=== PATIENT | male | born 1960 | race Caucasian/White ===

== ENCOUNTER → 2018-09-11 12:41 | Outpatient (CLI) | payer OTHER, SELFPAY ==
--- NOTE | 2018-09-11 12:48 | XR_ITS ---
XR hip LT 2-3V w/pelvis HISTORY: ITS.REASON: left hip pain ORDERING PHYSICIAN: Gee Salguero MD PATIENT AGE: 58 years COMPARISON: None FINDINGS: There are moderate osteoarthritic change of the left hip with decrease in the joint space mild osteophyte formation and osteosclerosis of the acetabular roof. No fracture or dislocation. There is some sclerosis of the SI joints on both sides and there is a right hip prosthesis present. IMPRESSION: Moderate osteoarthritis of left hip
== END ==
PROVIDERS: PCP Internal Medicine Adolescent Medicine; Visit Provider Orthopaedic Surgery
DX: M25.552 Pain in left hip (principal)
CPT/HCPCS: 73502

== ENCOUNTER → 2018-09-12 14:54 | Outpatient (CLI) | payer OTHER, SELFPAY ==
--- NOTE | 2018-09-12 15:06 | XR_ITS ---
XR knee RT 4V HISTORY: Knee pain ITS.REASON: 4 views weightbearing ORDERING PHYSICIAN: Gee Salguero MD PATIENT AGE: 58 years COMPARISON: 04/27/2010 FINDINGS: Severe osteoarthritic changes are present at the lateral compartment and patellofemoral joint with moderate osteoarthritis at the medial compartment. These findings have progressed compared to the previous exam. No fracture or dislocation. There is mild valgus angulation of the leg at the knee. IMPRESSION: Severe osteoarthritis of the right knee which has progressed since the previous exam
== END ==
PROVIDERS: PCP Internal Medicine Adolescent Medicine; Visit Provider Orthopaedic Surgery
DX: M25.561 Pain in right knee (principal)
CPT/HCPCS: 73564

== ENCOUNTER → 2018-10-23 11:28 | Outpatient (CLI) | payer OTHER, SELFPAY ==
[2018-10-23 12:04] LABS: Basophils % 0.5 % (0.1-2.0); Eosinophils # 0.3 K/mm3 (0.0-0.4); Eosinophils % 4.6 % (0.1-12.0); Hematocrit 44.2 % (42.0-52.0); Hemoglobin 14.5 g/dL (14.1-18.0); Lymphocytes # 1.7 K/mm3 (0.7-4.5); Lymphocytes % 28.8 % (10-50); Mean Corpuscular HGB Conc 32.9 g/dL (31.8-35.4); Mean Corpuscular Hemoglobin 30.1 pg (27.0-31.2); Mean Corpuscular Volume 91.4 fl (80-94); Monocytes # 0.4 K/mm3 (0.1-1.0); Monocytes % 6.4 % (1.7-9.3); Neutrophils # 3.4 K/mm3 (1.8-7.8); Neutrophils % 59.7 % (37.0-80.0); Platelet Count 347 K/mm3 (142-424); Red Blood Count 4.84 M/mm3 (4.60-6.20); Red Cell Distribution Width 14.1 % (11.5-17.5); White Blood Count 5.7 K/mm3 (4.8-10.8)
[2018-10-23 12:12] LABS: Activated Partial Thrombo Time 30.4 seconds (23.6-34.0); INR 0.93 (0.9-1.1); Prothrombin Time 9.7 seconds (9.4-11.8)
[2018-10-23 15:07] LABS: Alanine Aminotransferase 29 U/L (12-78); Albumin Level 3.7 gm/dL (3.4-5.0); Albumin/Globulin Ratio 1.2 (1.1-1.8); Alkaline Phosphatase 69 U/L (46-116); Anion Gap 16.4 mEq/L (5-15); Aspartate Amino Transferase 18 U/L (15-37); Bilirubin,Total 0.4 mg/dL (0.2-1.0); Blood Urea Nitrogen 16 mg/dL (7-18); Calcium 8.8 mg/dL (8.5-10.1); Carbon Dioxide 24 mmol/L (21.0-32.0); Chloride 107 mmol/L (98-107); Creatinine,Serum 0.83 mg/dL (0.70-1.30); Estimated Glomerular Filt Rate 95 ml/min (>60); GFR (African American) 115 ML/MIN (>60); Globulin 3.2 gm/dl (1.3-3.2); Glucose 104 mg/dL (74-106); Potassium 4.4 mmoL/L (3.5-5.1); Sodium 143 mmol/L (136-145); Total Protein,Serum 6.9 gm/dL (6.4-8.2)
[2018-10-24 10:48] LABS: Chol/HDL Ratio 5.1 (1-3.5); Cholesterol 213 mg/dL (140-200); HDL Cholesterol 42 mg/dL (27-67); LDL Cholesterol 150 mg/dL (0-130); Triglycerides 104 mg/dL (30-200); VLDL Cholesterol 21 mg/dL (0-40)
== END ==
PROVIDERS: Visit Provider Nurse Practitioner Family
DX: Z01.818 Encounter for other preprocedural examination (principal); Z00.00 Encounter for general adult medical examination without abnormal findings; E78.2 Mixed hyperlipidemia; M16.12 Unilateral primary osteoarthritis, left hip
CPT/HCPCS: 36415; 80053; 80061; 85025; 85610; 85730

== ENCOUNTER → 2018-11-07 16:18 | Outpatient (CLI) | payer OTHER, SELFPAY ==
--- NOTE | 2018-11-07 16:24 | XR_ITS ---
XR chest 2V HISTORY: ITS.REASON: H/O TOBACCO USE ORDERING PHYSICIAN: Gee Salguero MD PATIENT AGE: 58 years COMPARISON: 09/16/2010 FINDINGS: The cardiomediastinal silhouette and pulmonary vascularity are within normal limits. The lungs are clear without infiltrates, suspicious nodules, or pleural effusions. No acute bony abnormalities. IMPRESSION: Negative chest, no acute finding
[2018-11-07 16:37] LABS: Microscopic, Urine URINE MICROSCOPIC (MICROSCOPIC)
[2018-11-07 16:46] LABS: Appearance,Urine CLEAR (Clear); Bilirubin,Urine Negative (Negative); Blood, Urine Negative (Negative); Color,Urine YELLOW (Yellow); Glucose,Urine (UA) Negative (Negative); Ketones,Urine Negative (Negative); Leukocyte Esterase,Urine TRACE (Negative); Nitrate,Urine Negative (Negative); Protein,Urine Negative (Negative); Specific Gravity, Urine 1.025 (1.005-1.030); Urobilinogen,Urine 0.2 EU/dl (0.2)
[2018-11-07 17:05] LABS: Bacteria,Urine Trace /lpf; RBC,Urine Occasional #/hpf (0-3); WBC,Urine Occasional #/hpf (0-3)
== END ==
PROVIDERS: PCP Internal Medicine Adolescent Medicine; Visit Provider Orthopaedic Surgery
DX: Z01.818 Encounter for other preprocedural examination (principal); M16.12 Unilateral primary osteoarthritis, left hip
CPT/HCPCS: 71046; 81001

== ENCOUNTER → 2018-11-09 09:58 | Outpatient (CLI) | payer OTHER, SELFPAY | PROVIDERS: Visit Provider Orthopaedic Surgery | DX: Z01.818 Encounter for other preprocedural examination (principal) | CPT/HCPCS: 36415; 86850 ==

== ENCOUNTER 2018-11-11 06:02 | Inpatient (IN) ==
--- NOTE | 2018-11-11 07:01 | Progress Note ---
[facility] Anesthesia Checklist - Patient Identification Patient Identification: Arm Band, Verbal (Name & ) - Structural Data Admitted From: Home Planned Operative Procedure/s: Left total hip arthroplasty Consent for Planned Operative Procedure(s) Verified: Yes Verified Documents: Surgical Consent, History and Physical - NPO Status Verified Time NPO: 00:00 - Chart Verification Results Verified: CBC, BMP, ECG - Additional verifications Anesthesia Reactions: No - Airway Assessment C-Spine Mobility Assessed: Yes TMJ Mobility Assessed: Yes Dentition: Good Dentition (upper anterior cap) - Neurological Assessment Level of Consciousness: Awake, Alert, Appropriate, Follows Commands Hx Seizures: No Numbness or tingling in extremities: No - Anesthesia Plan Anesthesia Risk discussed: Yes Anesthesia Plan: Verified ASA Class: III Anesthesia Type: Spinal (SAB with GA) [facility] History I have reviewed the patient's past medical history: Yes Medical History: Denies:: Cancer, Diabetes Mellitus Type 1, Diabetes Mellitus Type 2, Internal Pacemaker, MRSA, Seizures *Have you ever received a pneumonia vaccine?: No *Have you received a flu vaccine this season?: No Other Medical History: Reports: Arthritis. Denies: Blood Transfusion Reaction Comment:: obesity Laterality Cases: Right: Arthroscopy Knee, Total Hip Replacement Other Surgeries: No: Pacemaker Amputation: No Fractures: No - *Social History Smoking Status: Current every day smoker # Packs/Day (cigarettes): 1 Alcohol Intake: current Alcohol Intake Frequency:: holidays/special occasions only *Occupational Status:: employed Housing: house *Travel in the last 8 weeks: None - Psychiatric History Expresses thoughts of harming self/others: None Suicide Plan Description: No Plan Family Hx:: No significant family history
--- NOTE | 2018-11-11 12:45 | Progress Note ---
[facility] Anesthesia Record Part I Intake, IV Amount: 3,500 Estimated blood loss (mL): 1,000 Urine output (mL): 300 Blood Pressure: 94/56 SaO2: 96 Pulse Rate: 62 Respiratory Rate: 12 Temperature: 97 F Patient is:: Drowsy, Stable Stable to PACU at:: 12:40
--- NOTE | 2018-11-11 12:46 | Progress Note ---
[facility] Anesthesia Record Part II Discharge Time: 13:10 Destination: floor PACU nurse assessment reviewed?: Yes Patient Condition:: Good Anesthesia Complications:: None Swallowing reflex intact?: Yes Cyanosis?: No
--- NOTE | 2018-11-11 13:17 | Operative Note ---
Date of procedure: 11/11/18 Pre-op Diagnosis:: Osteoarthritis, left hip Post-op Diagnosis:: Same Procedure performed:: Uncemented total hip arthroplasty, left hip Surgeon:: Gee Salguero MD Vice President Business Development(s):: Gina Pickard, certified social workers in health care SPLUNK ARCHITECT:: [place]ear[place] Anesthesia: spinal, LMA Estimated blood loss (mL): 1,000 Clinical Note:: Patient is a 58-year-old male who has end-stage osteoarthritis of his LEFT hip unresponsive to conservative management. The arthritis is causing severe pain and significant disability and has not responded well to conservative management. His pain has significantly worsened recently and he rates his pain a 10 out of 10 at its worse on the pain scale. He states walking, sitting, getting up from a seated position, weightbearing and going up or down stairs aggravates his pain. His mobility is impaired because of the hip pain. He also reports sleep disturbance and night pain. The pain also is adversely affecting his lifestyle, activities of daily living and his work. He also has advanced degenerative changes in his right knee which is also stiff. The pain and stiffness in his left hip and right knee puts him at risk of falls likely resulting in fractures. His imaging shows fairly advanced degenerative changes in his left hip. Given the progressive hip pain, limitation of activities and adverse effect on ADLs and work he is keen to proceed with a left total hip arthroplasty. A total hip arthroplasty is clinically indicated and is the standard of care to relieve pain and the help prevent the disability and risk of falls. He previously had a successful right total hip arthroplasty about 8 years ago. Patient is aware of the procedure, risks, complications, the postop rehabilitation and the outcome after having gone through a similar procedure on the right side previously. 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 He has no significant medical history. Please refer to my office note for full details. Operative findings:: Intraoperatively, end-stage osteoarthritis of the hip joint was noted. The femoral head was grossly arthritic and misshapen and osteophytes were noted on both the acetabulum and the femoral head. The capsule was thickened and hip joint was stiff with limited range of motion. The bone quality is good. Operative note:: On the day of the procedure the patient/family were met in the preoperative area and the patient was positively identified. A physical examination was performed and documented. The operative site was appropriately marked and initialed by me. I again reviewed the diagnosis, natural history and management options in detail including both nonsurgical and surgical. We discussed the proposed surgery, risks and benefits and alternatives in detail. The complications discussed include but are not limited to infection, injury to nerves, blood vessels and tendons, DVT and PE, fracture, limb length inequality, dislocation, implant malpositioning, implant failure, squeaking, loosening, acetabular wear, osteolysis, periprosthetic femur fracture, heterotopic ossification, abductor weakness and limp, incomplete relief of pain, likely need for further surgery in future including revision, anesthetic complications including heart attack, stroke and even . We also discussed the postoperative recovery and rehabilitation. Patient understood the risks, agreed to proceed with surgery, signed the consent form and no guarantees or assurances were given or implied. The patient was brought to the operating room and a spinal anesthesia followed by LMA was administered by the freight coordinator. The patient was then positioned in the RIGHT lateral decubitus position with the LEFT hip facing up. We used Browsarityon hip positioner for this. All the bony prominences were appropriately padded. The LEFT hip was then prepped with isopropyl alcohol followed by chlorhexidine and draped in the usual sterile fashion. The entire operative team wore isolation suits and the Operating Room traffic was controlled. The skin incision was marked for a posterior approach to the hip joint. The perineum and the operative site were sealed off with Ioban drape. A preprocedure timeout was performed as per hospital protocol identifying the patient, correct surgery and correct site. Administration of 2 g of prophylactic IV Ancef was confirmed with the anesthetic team. Before completion of the procedure 1 more gram of IV Ancef was administered as the operating time exceeded 2 hours. We have also administered 1g of IV tranexamic acid just before the incision and one more gram at the time of wound closure, to reduce the postoperative bleeding. A posterior approach was used to the LEFT hip joint. The skin incision was made centering over the posterior part of the greater trochanter extending posteriorly in a curved fashion across the buttock. An electrocautery was used for hemostasis. The dissection was carried through the subcutaneous tissue down to the fascia rachael. The fascia rachael and gluteus fascia were split in line with the incision and a Charnley retractor was placed. The trochanteric bursa was then removed with blunt dissection. The sciatic nerve was identified and kept out of harm's way throughout the rest of the procedure. The hip joint was internally rotated and the fat over the short external rotators was cleared with a sponge. The short external rotator muscles were identified, multiple tag stitches were placed near their insertion and they were divided close to the trochanter with electrocautery. This exposed the joint capsule which was opened in a T-shaped incision after tag stitches were placed to both the leaves of the capsule. There was marked inflammation and adhesions which made it joint dislocation somewhat difficult. Also there was more than usual bleeding from the capsule and external rotators which was controlled with diathermy cautery. Eventually the hip joint was dislocated with some difficulty on significant degenerative changes noted on both sides of the joint. Then the femoral neck was osteotomized with an oscillating saw. The femoral cutting guide was used to demarcate the appropriate level of the neck cut. The femoral head was removed, noted to be very deformed with osteophyte formation over the neck and saved on the back table for later use if needed. We then placed anterior and posterior Cobra retractors and proceeded to prepare the acetabulum. We also placed a thick Steinmann pin superiorly to help with soft tissue retraction. The soft tissue contents of the acetabulum including the ligamentum teres and the labrum were removed. We then proceeded to reaming the acetabulum. We started off with a size 50 reamer and then proceeded with reaming up to size 56 for a size 56 acetabular shell. Following appropriate reaming, we placed a size 56 definitive cluster hole acetabular shell at approximately 45 degrees inclination and 20 degrees of anteversion. The press-fit fixation was quite solid. We then placed the metal liner into the shell and impacted into place. We then placed a Ray-Demarco gauze in the acetabulum and proceeded to prepare the proximal femur. After removing the soft tissue from the medial aspect of the greater trochanter, a box osteotome was used to remove the bone from the proximal femur. A canal entry reamer was then used to open the femoral canal paying close attention to keep the reamer in a lateral position. Next we used the lateralizing drill. Next we performed femoral broaching starting with a small broach, making sure to lateralize the placement and maintain 15-20 degrees of femoral anteversion. The broaching was continued sequentially up to size 4 broach. We found this to be a very good fit without any rocking. We then finished the preparation of the proximal femur with a calcar reamer. We then performed a trial reduction using a size 4 broach, 132 angle neck and 0 mm head. The hip was reduced and taken through range of motion and tested in adduction, internal and external rotation as well as with a shuck and posteriorly directed force on a flexed hip. We placed the hip at 90 degrees of flexion and then we could internally rotate to over 45 degrees with no evidence of instability. Also in the sleep position of approximately 20 degrees of adduction and internal rotation of 45 degrees the hip was still stable. We also noted that the limb lengths were equal with these components. As the hip was noted to be very stable with these trial components throughout the range of motion, we decided on this as our final construct. Next the trial components were removed and the femoral canal was irrigated with the pulse lavage and suctioned out. There was an anterior osteophyte over the acetabulum which was removed with osteotome and rongeurs. The definitive femoral stem was then placed and seated to the appropriate level. This gave us a very good fit without any play whatsoever. We then irrigated and dried the Irving taper and then placed the definitive MDM femoral head assembly on the stem and tapped into place. The Ray-Demarco was removed from the acetabulum and hip joint irrigated with the pulse lavage. The hip was then reduced and taken through range of motion and noted to be very stable. The limb length was also well corrected. The hip joint was then soaked with dilute Betadine (0.35 percent) solution for 3 minutes followed by suctioning of the solution and pulsatile lavage with the 1 L of normal saline. At this point, I also injected the capsule and soft tissue with the local anesthetic cocktail (0.5 percent bupivacaine 200 mg +10 mg of morphine +600 g of epinephrine +750 mg of cefuroxime +30 mg of ketorolac diluted in normal saline to make up a total volume of 120 mL). The hip joint was again thoroughly irrigated with the pulse lavage and good hemostasis was confirmed. At this stage I have decided to place antibiotic beads in the wound to reduce the risk of infection as patient is obese and the surgical time was approaching 3 hours. The antibiotic beads were prepared on the back table by the certified technician by mixing 10 cc of OsteoBoost Putty (OsteoRemedies) with 2 g of vancomycin and 120 mg of gentamicin. We placed these beads around the prosthesis and also in the soft tissues both deep and superficial to the fascia rachael. We then proceeded with with wound closure. The capsule was closed with #1 Vicryl sutures followed by the reattachment of the external rotators to the greater trochanter with #1 Vicryl sutures. Next the fascia rachael and gluteus fascia were closed with #1 Vicryl sutures. The wound was then finally irrigated with pulse lavage and suctioned dry. Next the subcutaneous tissue was closed wi th interrupted 2-0 Vicryl sutures. The skin was closed with subcuticular 4-0 Monocryl sutures, Dermabond and Steri-Strips. Sterile dressings were applied consisting of Xeroform, 4 x 4 and [address] secured in place with adhesive tape. No drains were placed. The patient was then transferred from the operating table onto the bed. The leg lengths were again checked in supine position and noted to be equal. An abduction foam was placed between the legs. The patient was then reversed from the anesthetic and transported to the postoperative recovery area in a stable condition. Patient tolerated the procedure well and there were no immediate complications. The swab, needle and instrument counts were correct according to the scrub team at the end of the procedure. Portable x-rays of the pelvis AP view and lateral view of the LEFT hip were obtained in the recovery area which showed satisfactory placement of the components and no evident complications. Postoperatively, institute and continue standard precautions for a posterior hip approach. Patient can be mobilized weightbearing as tolerated with the help of physical therapy and commence standard physical therapy for a posterior approach on the first postoperative day. Implants: The following [employer] implants were used- Guilherme Accolade 2 press-fit femoral stem, 132 degree neck angle, size 4 Trident titanium cluster hole acetabular shell, 56 mm 46 mm inner diameter MDM cementless liner Taoism MDM X3 insert 28/, size 46F Biolox delta ceramic head V 40 femoral head, size 28 mm x +0 mm neck length Industry software sales representative: Kendall Johann from [employer]. Condition: stable Disposition: PACU Specimens:: None Complications:: None
[2018-11-11 13:19] LABS: Hematocrit 33.9 % (42.0-52.0)
--- NOTE | 2018-11-11 14:17 | Pharmacy Consult Notes ---
[facility] Pharmacy VTE Monitoring - Patient Demographics Admission date: 11/11/18 Report Date: 11/11/18 Time: 14:17 Allergies/Adverse Reactions: Patient Allergies No Known Allergies Allergy (Verified 11/08/18 10:57) Height: 1.88 m Weight: 129.812 kg - VTE Risk Labs: VTE Related Lab Results Hgb 11.0 g/dL (14.1-18.0) L 11/11/18 13:10 Hct 33.9 % (42.0-52.0) L 11/11/18 13:10 - Prophylaxis VTE Prophylaxis Ordered?: Yes Types of VTE Prophylaxis: IPCS Thigh High, Pharmacological Location of Applied Device: Bilateral Lower Extremeties Pharmacologic Type: Other (XARELTO) - VTE Diagnosis Confirmed Treatment or plan recommended: Continue Current Treatment
--- NOTE | 2018-11-11 15:04 | Progress Note ---
Subjective Date: 11/11/18 Time: 14:30 Principal diagnosis: Status post total hip arthroplasty, left Interval history: Patient is status post LEFT total hip arthroplasty earlier today. The surgery was difficult and he did not lose about thousand mL of blood during surgery. Now he is back on the floor and patient is lying down on the bed. He says he is having a lot of pain in his left hip. No history of any nausea or vomiting. No history of any cough, chest pain, shortness of breath or palpitations. No history of any distal tingling or numbness. PN: Obj Ex Vital signs: Temp Pulse Resp BP Pulse Ox 97 F L 60 20 118/80 95 11/11/18 12:45 11/11/18 13:20 11/11/18 13:20 11/11/18 13:20 11/11/18 13:20 Narrative: Laboratory Results - last 24 hr 11/11/18 07:45: Urine Color Yellow, Urine Appearance Clear, Urine pH 6.0, Ur Specific [place] 1.025, Urine Protein Negative, Urine Glucose (UA) Negative, Urine Ketones Negative, Urine Blood Negative, Urine Nitrate Negative, Urine Bilirubin Negative, Urine Urobilinogen 0.2, Ur Leukocyte Esterase Negative, Urine RBC None, Urine WBC None, Ur Squamous Epith Cells Occasional, Urine Bacteria Trace 11/11/18 13:10: Hgb 11.0 L, Hct 33.9 L Exam General appearance: alert, active, awake, no acute distress Cardiovascular: regular rate & rhythm, normal peripheral pulses Respiratory: No respiratory distress noted, speaks in full sentences ABD: soft and non tender Neuro: alert, awake, oriented x 3 Genitourinary: Catheter in situ. On examination of the lower extremities he has an abduction wedge in place. On examination of the LEFT hip the dressings are clean, dry and intact. Distal pulses are 2+. Distal sensation is intact to light touch throughout. He is able to actively move the ankle, foot and toes. Diagnostic imaging: Postoperative x-ray reviewed and noted to be satisfactory. - Urinary Catheter Management Coude Cath placed during this visit: yes Urethral indwelling: Yes Reason for continuing: Surgical procedure Insertion date: 11/11/18 Insertion time: 07:45 Progress Note: A&P (1) Primary osteoarthritis of left hip Status: Acute Current Visit: Yes (2) S/P total hip arthroplasty Status: Acute Current Visit: Yes Assessment and Plan for All Diagnoses:: I have reviewed the clinical and operative findings and procedure performed with the patient and family. He is complaining of left hip pain but otherwise patient is doing well. Patient can be mobilized weightbearing as tolerated on the LEFT side with a walker and on the first postoperative day. Continue DVT prophylaxis. Continue abduction pillow when in bed and continue standard precautions for the posterior approach hip replacement. As his pain is not well controlled with as needed medication, I have ordered morphine [employer]. Discontinue the urinary catheter on first postoperative day. Case management consult regarding discharge planning. Postoperative H&H .9.
--- NOTE | 2018-11-11 18:10 | Consult Report ---
*Admission Date: 11/11/18 *Reason for consult:: Medical management/postoperative left hip replacement *History of present illness: 58-year-old white male with medical problems as listed below who underwent succ essful total left hip arthroplasty earlier today. Consulted for medical management postoperatively. Patient is awake, in good spirits. Denies cardiopulmonary or GI complaints. Pain relief is adequate at this point. [facility] History I have reviewed the patient's past medical history: Yes Medical History: Denies:: Cancer, Diabetes Mellitus Type 1, Diabetes Mellitus Type 2, Internal Pacemaker, MRSA, Seizures *Have you ever received a pneumonia vaccine?: No *Have you received a flu vaccine this season?: No Other Medical History: Reports: Arthritis. Denies: Blood Transfusion Reaction Laterality Cases: Right: Arthroscopy Knee, Total Hip Replacement Other Surgeries: No: Pacemaker Amputation: No Fractures: No - *Social History Educational Level: Completed College Smoking Status: Current every day smoker Tobacco Type: cigarettes # Packs/Day (cigarettes): 1 Alcohol Intake: current Alcohol Intake Frequency:: holidays/special occasions only *Occupational Status:: employed Housing: house Household Members: family *Travel in the last 8 weeks: None - Psychiatric History Expresses thoughts of harming self/others: None Suicide Plan Description: No Plan Family Hx:: No significant family history, Non-contributory Review of Systems - Review of Systems Review of systems:: pertinent systems reviewed and negative unless documented below Denies shortness of air/chest pain/palpitations. Denies abdominal pain. Continues to have some pain in the left hip/incisional site but no significant pain down the leg. Neurologically intact, no headache pain Meds Home Medications Medication Instructions Recorded Confirmed Type Bacitracin/Polymyxin B Sulfate 0 gm TOPICAL DAILY 11/11/18 11/11/18 History [Polysporin Oint 30gm Tube] Allergies Allergy/AdvReac Type Severity Reaction Status Date / Time No Known Allergies Allergy Verified 11/08/18 10:57 Exam Vital signs and Labs for Last 24 Hours: Temp Pulse Resp BP Pulse Ox 97.5 F L 56 L 18 114/57 L 99 11/11/18 16:30 11/11/18 16:30 11/11/18 16:30 11/11/18 16:30 11/11/18 16:30 Laboratory Results - last 24 hr 11/11/18 07:45: Urine Color Yellow, Urine Appearance Clear, Urine pH 6.0, Ur Specific [place] 1.025, Urine Protein Negative, Urine Glucose (UA) Negative, Urine Ketones Negative, Urine Blood Negative, Urine Nitrate Negative, Urine Bilirubin Negative, Urine Urobilinogen 0.2, Ur Leukocyte Esterase Negative, Urine RBC None, Urine WBC None, Ur Squamous Epith Cells Occasional, Urine Bacteria Trace 11/11/18 13:10: Hgb 11.0 L, Hct 33.9 L I & O for Last 24 hours: Intake & Output 11/09/18 11/10/18 11/11/18 11/12/18 11:59 11:59 11:59 11:59 Intake Total 3840 / 3840 Output Total 650 / 650 Balance 3190 / 3190 Weight 280 lb 286 lb 3 oz Narrative: Alert, pleasant, cranial nerves intact. Oropharynx clear. No JVD. Heart rate regular without murmurs. Lungs clear. Abdomen soft and nontender. No edema in hands, normal pulses. Right leg unremarkable. Left leg in postoperative bandages, distal toes intact, warm and well-perfused Internal Medicine - CN: Reslt - Labs CBC & Chem 7: 11/11/18 13:10 Labs: Short CBC 11/11/18 Range/Units 13:10 Hgb 11.0 L (14.1-18.0) g/dL Hct 33.9 L (42.0-52.0) % Urine 11/11/18 Range/Units 07:45 Urine Color Yellow (Yellow) Urine Appearance Clear (Clear) Urine pH 6.0 (5.0-8.5) Ur Specific [place] 1.025 (1.005-1.030) Urine Protein Negative (Negative) Urine Glucose (UA) Negative (Negative) Assessment and Plan (1) Primary osteoarthritis of left hip Current visit: Yes Status: Acute Category: Medical Code(s): M16.12 - Unilateral primary osteoarthritis, left hip (2) S/P total hip arthroplasty Current visit: Yes Status: Acute Category: Surgical Code(s): Z96.649 - Presence of unspecified artificial hip joint - Assessment and plan all Dx Assessment and Plan for all problems:: Appears to have done well with operative intervention. No contraindication to physical therapy tomorrow. Will follow with orthopedics.
[2018-11-12 06:03] LABS: Basophils % 0.3 % (0.1-2.0); Eosinophils # 0.1 K/mm3 (0.0-0.4); Eosinophils % 1.2 % (0.1-12.0); Lymphocytes # 1.5 K/mm3 (0.7-4.5); Lymphocytes % 17.7 % (10-50); Mean Corpuscular HGB Conc 32.3 g/dL (31.8-35.4); Mean Corpuscular Volume 91.7 fl (80-94); Mean Platelet Volume 7.1 fl (7.4-10.4); Monocytes # 0.6 K/mm3 (0.1-1.0); Monocytes % 7.4 % (1.7-9.3); Neutrophils # 6.2 K/mm3 (1.8-7.8); Neutrophils % 73.5 % (37.0-80.0); Platelet Count 269 K/mm3 (142-424); Red Blood Count 3.71 M/mm3 (4.60-6.20); Red Cell Distribution Width 14.3 % (11.5-17.5); White Blood Count 8.5 K/mm3 (4.8-10.8)
[2018-11-12 06:09] LABS: Anion Gap 12.3 mEq/L (5-15)
--- NOTE | 2018-11-12 08:02 | Progress Note ---
Internal Medicine - PN: Subj *Date: 11/12/18 *Time: 08:00 Interval history: Patient got up with physical therapy this morning. Has no complaints. Tolerating p.o. intake. Otherwise doing well. Hemodynamic stable, normal blood pressure, afebrile. Denies nausea, vomiting. Pain well controlled on current regimen Exam Vital signs and Labs for Last 24 Hours: Temp Pulse Resp BP Pulse Ox 98.5 F 70 20 111/63 98 11/12/18 06:00 11/12/18 06:00 11/12/18 07:42 11/12/18 06:00 11/12/18 07:42 Laboratory Results - last 24 hr 11/11/18 07:45: Urine Color Yellow, Urine Appearance Clear, Urine pH 6.0, Ur Specific [place] 1.025, Urine Protein Negative, Urine Glucose (UA) Negative, Urine Ketones Negative, Urine Blood Negative, Urine Nitrate Negative, Urine Bilirubin Negative, Urine Urobilinogen 0.2, Ur Leukocyte Esterase Negative, Urine RBC None, Urine WBC None, Ur Squamous Epith Cells Occasional, Urine Bacteria Trace 11/11/18 13:10: Hgb 11.0 L, Hct 33.9 L 11/12/18 05:31: WBC 8.5, RBC 3.71 L, Hgb 11.0 L, Hct 34.0 L, MCV 91.7, MCH 29.6, MCHC 32.3, RDW 14.3, Plt Count 269, MPV 7.1 L, Neut % (Auto) 73.5, Lymph % (Auto) 17.7, [place] % (Auto) 7.4, Eos % (Auto) 1.2, Baso % (Auto) 0.3, Neut # (Auto) 6.2, Lymph # (Auto) 1.5, [place] # (Auto) 0.6, Eos # (Auto) 0.1, Baso # (Auto) 0.0 11/12/18 05:31: Sodium 140, Potassium 4.3, Chloride 104, Carbon Dioxide 28, Anion Gap 12.3, BUN 8, Creatinine 1.03, Estimated Creat Clear 143, Estimated GFR 74, Est GFR ( Amer) 90, Glucose 112 H, Calcium 8.0 L I & O for Last 24 hours: Intake & Output 11/09/18 11/10/18 11/11/18 11/12/18 23:59 23:59 23:59 23:59 Intake Total 4206 / 4206 Output Total 650 / 650 1800 / 1800 Balance 3556 / 3556 -1800 / -1800 Weight 129.812 kg 129.727 kg Narrative: Alert, pleasant, cranial nerves intact. Oropharynx clear. No JVD. Heart rate regular without murmurs. Lungs clear. Abdomen soft and nontender. No edema in hands, normal pulses. Right leg unremarkable. Left leg in postoperative bandages, distal toes intact, warm and well-perfused Assessment and Plan (1) Primary osteoarthritis of left hip Current visit: Yes Status: Acute Category: Medical Code(s): M16.12 - Unilateral primary osteoarthritis, left hip (2) S/P total hip arthroplasty Current visit: Yes Status: Acute Category: Surgical Code(s): Z96.649 - Presence of unspecified artificial hip joint (3) Class II obesity Current visit: Yes Status: Acute Category: Medical Code(s): E66.9 - Obesity, unspecified Complicates all aspects of care - Assessment and plan all Dx Assessment and Plan for all problems:: Blood pressure stable. No need for antihypertensives at this time. Continue Xarelto for DVT prophylaxis. Recommend discontinuing Velazquez catheter to decrease risk for infection and promote ambulation. Continue physical therapy.
--- NOTE | 2018-11-12 13:26 | Progress Note ---
Subjective Date: 11/12/18 Time: 13:00 Principal diagnosis: Status post total hip arthroplasty, left Interval history: Patient is status post LEFT total hip arthroplasty post op day #1. Patient is lying down on the bed. Says he is doing well and reports no problems. Patient says he went to the bathroom few minutes ago and had an acute episode of severe left hip pain but otherwise the pain is well controlled with medication. No history of any nausea or vomiting. No history of any cough, chest pain, shortness of breath or palpitations. Patient says he is eating and drinking well. No history of any distal tingling or numbness. PN: Obj Ex Vital signs: Temp Pulse Resp BP Pulse Ox 98.9 F 72 16 105/67 L 98 11/12/18 11:40 11/12/18 11:40 11/12/18 11:40 11/12/18 11:40 11/12/18 11:40 Narrative: Laboratory Results - last 24 hr 11/11/18 13:10: Hgb 11.0 L, Hct 33.9 L 11/12/18 05:31: WBC 8.5, RBC 3.71 L, Hgb 11.0 L, Hct 34.0 L, MCV 91.7, MCH 29.6, MCHC 32.3, RDW 14.3, Plt Count 269, MPV 7.1 L, Neut % (Auto) 73.5, Lymph % (A uto) 17.7, [place] % (Auto) 7.4, Eos % (Auto) 1.2, Baso % (Auto) 0.3, Neut # (Auto) 6.2, Lymph # (Auto) 1.5, [place] # (Auto) 0.6, Eos # (Auto) 0.1, Baso # (Auto) 0.0 11/12/18 05:31: Sodium 140, Potassium 4.3, Chloride 104, Carbon Dioxide 28, Anion Gap 12.3, BUN 8, Creatinine 1.03, Estimated Creat Clear 143, Estimated GFR 74, Est GFR ( Amer) 90, Glucose 112 H, Calcium 8.0 L Intake & Output 11/10/18 11/11/18 11/12/18 11/13/18 11:59 11:59 11:59 11:59 Intake Total 4446 / 4446 240 / 240 Output Total 3150 / 3150 Balance 1296 / 1296 240 / 240 Weight 280 lb 286 lb Exam General appearance: alert, active, awake, no acute distress Cardiovascular: regular rate & rhythm, normal peripheral pulses Respiratory: No respiratory distress noted, speaks in full sentences ABD: soft and non tender Neuro: alert, awake, oriented x 3 Psych: normal mood and affect On examination of the lower extremities the limb lengths are equal. Thigh and calf are soft and nontender. On examination of the LEFT hip the dressings are clean, dry and intact. Distal pulses are 2+. Distal sensation is intact to light touch throughout. No motor deficits noted distally. He demonstrates good range of active ankle, foot and toe movements. - Urinary Catheter Management Coude Cath placed during this visit: yes Urethral indwelling: Yes Reason for continuing: Surgical procedure Insertion date: 11/11/18 Insertion time: 07:45 Velazquez Cath placed during this visit: no Progress Note: A&P (1) Primary osteoarthritis of left hip Status: Acute Current Visit: Yes (2) S/P total hip arthroplasty Status: Acute Current Visit: Yes (3) Class II obesity Status: Acute Current Visit: Yes Assessment and Plan for All Diagnoses:: I have reviewed the clinical findings and progress with the patient and family. Patient overall is doing well and reports no problems. He is mobilizing well weightbearing as tolerated on the LEFT side with the walker and to continue the same. Continue DVT prophylaxis. Continue abduction pillow when in bed and continue standard precautions for the posterior approach hip replacement. Discontinue IV fluids, SCRAP BALLER. Urinary catheter has been discontinued earlier today. Case management is looking into discharge planning. Continue medical management as per Dr. Davies.
[2018-11-13 06:27] LABS: Basophils % 0.3 % (0.1-2.0); Eosinophils # 0.1 K/mm3 (0.0-0.4); Hematocrit 31.7 % (42.0-52.0); Hemoglobin 10.4 g/dL (14.1-18.0); Lymphocytes # 1.5 K/mm3 (0.7-4.5); Lymphocytes % 13.8 % (10-50); Mean Corpuscular HGB Conc 32.9 g/dL (31.8-35.4); Mean Corpuscular Volume 93.2 fl (80-94); Mean Platelet Volume 7.6 fl (7.4-10.4); Monocytes # 0.9 K/mm3 (0.1-1.0); Monocytes % 8.4 % (1.7-9.3); Neutrophils # 8.2 K/mm3 (1.8-7.8); Neutrophils % 76.6 % (37.0-80.0); Platelet Count 259 K/mm3 (142-424); Red Blood Count 3.41 M/mm3 (4.60-6.20); Red Cell Distribution Width 14.2 % (11.5-17.5); White Blood Count 10.7 K/mm3 (4.8-10.8)
[2018-11-13 06:33] LABS: Anion Gap 11.8 mEq/L (5-15); Calcium 8.1 mg/dL (8.5-10.1)
--- NOTE | 2018-11-13 14:21 | Progress Note ---
Subjective Date: 11/13/18 Time: 13:00 Principal diagnosis: Status post total hip arthroplasty, left Interval history: Patient is status post LEFT total hip arthroplasty post op day #2. Patient is lying down on the bed. He still complaining of significant pain and says it is not well controlled with as needed hydrocodone/Tylenol. He says he is mobilizing well with physical therapy using a walker. S no history of any nausea or vomiting. No history of any cough, chest pain, shortness of breath or palpitations. Patient says he is eating and drinking well. No history of any distal tingling or numbness. PN: Obj Ex Vital signs: Temp Pulse Resp BP Pulse Ox 98.4 F 75 18 130/75 98 11/13/18 11:05 11/13/18 11:05 11/13/18 11:05 11/13/18 11:05 11/13/18 11:05 Narrative: Laboratory Results - last 24 hr 11/13/18 05:36: Sodium 139, Potassium 3.8, Chloride 103, Carbon Dioxide 28, Anion Gap 11.8, BUN 13 D, Creatinine 1.07, Estimated Creat Clear 137, Estimated GFR 71, Est GFR ( Amer) 86, Glucose 130 H, Calcium 8.1 L 11/13/18 05:56: WBC 10.7 D, RBC 3.41 L, Hgb 10.4 L, Hct 31.7 L, MCV 93.2, MCH 30.6, MCHC 32.9, RDW 14.2, Plt Count 259, MPV 7.6, Neut % (Auto) 76.6, Lymph % (Auto) 13.8, [place] % (Auto) 8.4, Eos % (Auto) 1.0, Baso % (Auto) 0.3, Neut # (Auto) 8.2 H, Lymph # (Auto) 1.5, [place] # (Auto) 0.9, Eos # (Auto) 0.1, Baso # (Auto) 0.0 Exam General appearance: alert, active, awake, no acute distress Cardiovascular: regular rate & rhythm, normal peripheral pulses Respiratory: No respiratory distress noted, speaks in full sentences ABD: soft and non tender Neuro: alert, awake, oriented x 3 On examination of the lower extremities the limb lengths are equal. Thigh and calf are soft and nontender. On examination of the LEFT hip the dressings are clean, dry and intact. The dressings are changed by me. There is no soakage of the dressings. The wound looks clean and healthy. No evidence of any infection or other complications is noted. Distal pulses are 2+. Distal sensation is intact to light touch throughout. No motor deficits noted distally. - Urinary Catheter Management Coude Cath placed during this visit: yes Urethral indwelling: Yes Reason for continuing: Surgical procedure Insertion date: 11/11/18 Insertion time: 07:45 Velazquez Cath placed during this visit: no Progress Note: A&P (1) Primary osteoarthritis of left hip Status: Acute Current Visit: Yes (2) S/P total hip arthroplasty Status: Acute Current Visit: Yes (3) Class II obesity Status: Acute Current Visit: Yes Assessment and Plan for All Diagnoses:: I have reviewed the clinical findings and progress with the patient. Overall he is doing well but his pain appears to be poorly controlled with oral hydrocodone/Tylenol. Therefore, I have changed his pain medication and ordered PRN oxycodone. Patient is mobilizing well weightbearing as tolerated on the LEFT side with the walker and to continue the same. Continue DVT prophylaxis. Continue abduction pillow when in bed and continue standard precautions for the posterior approach hip replacement. Case management looking into discharge planning. I understand that his insurance provider declined to approve his to stay [facility] for rehab. Continue medical management as per Dr. Davies.
--- NOTE | 2018-11-14 08:15 | Progress Note ---
Internal Medicine - PN: Subj *Date: 11/14/18 *Time: 08:11 Interval history: Patient had a good night overnight, but this morning has developed some significant left thigh pain on the lateral aspect of the thigh and reports that the left side of the thigh appears hard. Denies shortness of air, denies chest pain. Exam Vital signs and Labs for Last 24 Hours: Temp Pulse Resp BP Pulse Ox 99.3 F 78 18 141/78 H 95 11/14/18 07:35 11/14/18 07:35 11/14/18 07:40 11/14/18 07:35 11/14/18 07:35 I & O for Last 24 hours: Intake & Output 11/11/18 11/12/18 11/13/18 11/14/18 11:59 11:59 11:59 11:59 Intake Total 4446 / 4446 960 / 960 1080 / 1080 Output Total 3150 / 3150 850 / 850 Balance 1296 / 1296 960 / 960 230 / 230 Weight 280 lb 286 lb 284 lb 9 oz 283 lb 6 oz Narrative: Patient is awake, alert. No tachypnea or tachycardia noted. His left leg is extremely tender along the lateral aspect of the quad muscle and there is a's suggestion of tightness to the muscle but there is no cord formation or bruising evident. There is a small blister at the proximal aspect of the thigh just below the dressing from his hip incision surgery, but no actual skin breakdown. There is no calf swelling or cord formation in the calf. He is able to flex the knee but only minimally because of pain in the quad muscle area with flexion. Assessment and Plan (1) Primary osteoarthritis of left hip Current visit: Yes Status: Acute Category: Medical Code(s): M16.12 - Unilateral primary osteoarthritis, left hip (2) S/P total hip arthroplasty Current visit: Yes Status: Acute Category: Surgical Code(s): Z96.649 - Presence of unspecified artificial hip joint (3) Class II obesity Current visit: Yes Status: Acute Category: Medical Code(s): E66.9 - Obesity, unspecified - Assessment and plan all Dx Assessment and Plan for all problems:: Left leg pain --very atypical for DVT but in the context of postoperative status I have ordered Dopplers. Warm compresses have also been ordered. I wonder if this represents some type of muscle spasm from the PT/possible incision location. His neurovascular exam seems intact at this point. Close observation continues.
--- NOTE | 2018-11-14 09:07 | Non-Invasive Vascular Report ---
"Venous Exam Indications: 729.81 Swelling of limb. 729.5 Pain in limb. IMPRESSIONS No evidence of deep or superficial vein thrombosis involving the left lower extremity History: Risk factors: Recent surgery: HIP 11/11/18. Left lower extremity venous duplex evaluation. Doppler flow study including spectral analysis, color and ocampo scale imaging. Location: Bedside. Patient status: Inpatient. CRITICAL FINDINGS - Reported to: RN - Read back and verified. - 11/14/18 - 899 - NONE Tables: Venous flow and imaging: + +-------+ + |Location |Overall|Flow properties | + +-------+ + |Left common femoral |Patent |Normal phasicity; spontaneous; | | | |normal augmentation; compressible | + +-------+ + |Left saphenofemoral junction|Patent |Compressible | + +-------+ + |Left profunda femoral |Patent |Compressible | + +-------+ + |Left femoral |Patent |Normal phasicity; spontaneous; | | | |normal augmentation; compressible | + +-------+ + |Left greater saphenous |Patent |Normal phasicity; spontaneous; | | | |normal augmentation; compressible | + +-------+ + |Left popliteal |Patent |Normal phasicity; spontaneous; | | | |normal augmentation; compressible | + +-------+ + |Left posterior tibial |Patent |Compressible | + +-------+ + |Left peroneal |-------| | + +-------+ + |Left gastrocnemius |Patent |Compressible | + +-------+ + |Left soleal |Patent |Compressible | + +-------+ + (Report amended ) Electronically signed by: Rusty Nice [id number]"
[2018-11-14 14:47] VITALS: BP 151/72
--- NOTE | 2018-11-14 15:59 | Discharge Summary ---
General - General Admission date:: 11/11/18 Discharge date: 11/14/18 HPI HPI: Patient is a 58-year-old male who has end-stage osteoarthritis of his LEFT hip unresponsive to conservative management. He was admitted to hospital following an uncomplicated primary left total hip arthroplasty on 11/11/2018. He is giving a history of progressively worsening left hip pain. His x-rays showed severe left hip arthritis. He previously had a successful right total hip arthroplasty about 8 years ago. Has had left hip pain for the length of time and his symptoms have progressed rapidly over the last for 6 months or so. He localizes the pain to anterior, posterior and lateral aspect of his left hip with radiation into the upper thigh. He is having difficulty with work and activities of daily living because of his left hip arthritis. He reports night pain and occasional sleep disturbance as well as difficulty with activities of daily living including caring for his feet, dressing and undressing and putting socks and shoes on. He also reports significant stiffness in his left hip. He also reports that his pain is worse in cold weather and also aggravated with walking, weightbearing and climbing stairs. No history of any distal tingling or numbness. No history of any radicular symptoms. The arthritis is causing severe pain and significant disability and has not responded well to conservative management. The pain also is affecting his lifestyle, activities of daily living and significantly impacting his work. He is also at risk of falls from his arthritis. A total hip arthroplasty is indicated to relieve pain and the help prevent the disability and risk of falls. Hospital Course Hospital Course: Following uncomplicated primary total hip arthroplasty patient was admitted to the inpatient [facility] and has progressed well. His postoperative check x-ray was satisfactory with good alignment and fixation of the components. He was advised to ambulate weightbearing as tolerated on the LEFT side. Patient managed this very well using the walker. He is pain was difficult to control initially but was well controlled after switching to oral oxycodone. On the day of discharge patient complained of some anterior thigh pain and Dr. Davies ordered a Doppler scan to rule out DVT. This was noted to be negative for DVT. His surgical incision is clean and dry without any active discharge or signs of infection. His distal neurovascular status is intact. Patient is eating and drinking well without any problems. Patient is medically stable at the time of discharge and was medically cleared for discharge by Dr. Besson. The dressings were changed on the second postoperative day and the wound is healthy and healing well. No signs of any erythema, induration or discharge. Patient was started on Xarelto 10 mg daily for DVT prophylaxis after surgery. His neurovascular status in both lower extremities is intact. Pedal pulses 2+ bilaterally and fully sensate distally. No clinical evidence of DVT noted. Patient was cleared for discharge by physical therapy. On the day of discharge, the wound is clean and dry. The patient's vital signs have been stable throughout and he is afebrile at the time of discharge. He is being discharged home, self-care and he has elected to attend an outpatient facility for postoperative rehab. Condition at discharge: improved and stable. Treatments and Procedures: Total hip arthroplasty, left hip; date of surgery 11/11/2018 Objective Vital signs: Temp Pulse Resp BP Pulse Ox 100.6 F H 85 18 151/72 H 97 11/14/18 14:46 11/14/18 14:46 11/14/18 14:46 11/14/18 14:46 11/14/18 14:46 no acute distress, obese - *Routine HEENT Exam Head: Present: normocephalic, atraumatic Eye: Present: EOMI ENT: Present: mucous membranes moist - *Routine Neck Exam Present: supple, full ROM - *Routine Respiratory Exam Present: CTA bilaterally. Absent: respiratory distress - *Routine Cardiovascular Exam Present: RRR, Normal S1, Normal S2 - *Routine Abdominal Exam Present: soft, normoactive bowel sounds. Absent: organomegaly - *Routine Extremities Exam Comments: On examination of the lower extremities the limb lengths are equal. Thigh and calf are soft and nontender. On examination of the LEFT hip the dressings are clean, dry and intact. The dressings were changed by me. There is no soakage of the dressings. The wound looks clean and healthy. No evidence of any infection or other complications noted. Distal pulses are 2+. Distal sensation is intact. He demonstrates good range of knee, foot and ankle movements. - Routine Back/Spine/Pelvis Exam Back/Spine: Present: full ROM. Absent: paraspinal tenderness, vertebral ten derness - *Routine Skin Exam Present: intact, warm, normal turgor - *Routine Neurological Exam Present: alert, oriented X3, moving all extremities, normal tone, normal speech - Routine Psychiatric Exam Present: normal affect, cooperative DS: Diagnosis - Discharge Diagnosis (1) Primary osteoarthritis of left hip Status: Acute (2) S/P total hip arthroplasty Status: Acute (3) Class II obesity Status: Acute Discharge Plan - Patient Discharge Instructions ACTIVITY: Ambulate as tolerated DIET: regular diet Patient Instructions: Hip Replacement, DI for Hip Replacement, Surgical Site Infection - Follow up Plan Disposition: Home, Self-Jail Medications: Home Medications Medication Instructions Recorded Confirmed Type RX: Atorvastatin Calcium 40 mg PO DAILY 11/12/18 11/12/18 History [Atorvastatin 40mg Tab] Oxycodone HCl/Acetaminophen 1 - 2 tab PO Q4H PRN #60 tab 11/14/18 Rx [Percocet 5/325mg tablet] RX: Docusate Sodium [Docusate 100 mg PO BID #14 cap 11/14/18 Rx Sodium 100mg Cap] RX: Ferrous Sulfate [Ferrous 325 mg PO BID #90 tab 11/14/18 Rx Sulfate 325mg Tablet] RX: Rivaroxaban [Xarelto 10mg 10 mg PO DAILY #35 tab 11/14/18 Rx tablet] Prescriptions/Medication Reconciliation: New Oxycodone HCl/Acetaminophen [Percocet 5/325mg tablet] 1 - 2 tab PO Q4H PRN #60 tab PRN Reason: Breakthru Severe Pain RX: Docusate Sodium [Docusate Sodium 100mg Cap] 100 mg PO BID #14 cap RX: Ferrous Sulfate [Ferrous Sulfate 325mg Tablet] 325 mg PO BID #90 tab RX: Rivaroxaban [Xarelto 10mg tablet] 10 mg PO DAILY #35 tab Continued RX: Atorvastatin Calcium [Atorvastatin 40mg Tab] 40 mg PO DAILY Discontinued Bacitracin/Polymyxin B Sulfate [Polysporin Oint 30gm Tube] 0 gm TOPICAL DAILY - Additional Information Additional Information: Our recommendations on discharge include physical therapy with weightbearing as tolerated and standard postoperative rehab for primary total hip replacement via posterior approach. Patient was also advised to keep the leg elevated and ice the hip on a regular basis. At this stage it is permissible to take a shower and allow the incision to get wet with shower water. After padding the area dry, the wound can be left open. Patient has absorbable sutures and Steri-Strips for wound closure. To continue mobilizing weightbearing as tolerated on the LEFT side with the walker and transition to a cane as he progresses. Standard physical therapy and postoperative precautions as for a posterior approach hip replacement. Keep the abduction wedge between the legs when patient is in bed and also during sleep for 6 weeks postop. Patient will follow up with me in the office in approximately 12-14 days for wound check and to cut the suture ends. Recommend 10 mg of Xarelto p.o. daily for 5 weeks for DVT prophylaxis. Please feel free to call our office at [phone] or via the hospital ribbing machine operator [phone] for any orthopedic questions or concerns.
== END 2018-11-14 18:10 | disposition home or self-care (01) | DRG 470 ==
LOC: OR 06:02 → 2ND 06:10
PROVIDERS: ADMIT Orthopaedic Surgery; ATTEND Orthopaedic Surgery
CPT/HCPCS: 36415; 73502; 80048; 81001; 85014; 85018; 85025; 93971; 96374; 97110; 97116; 97161; 97166; 97530; 97535; A4649; C1713; C1776; J0697; J2704; J3370

== ENCOUNTER → 2018-11-26 16:41 | Outpatient (CLI) | payer OTHER, SELFPAY ==
--- NOTE | 2018-11-26 16:49 | XR_ITS ---
XR hip LT 2-3V w/pelvis HISTORY: Follow-up hip replacement ITS.REASON: two weeks sp LT total hip ORDERING PHYSICIAN: Gee Salguero MD PATIENT AGE: 58 years COMPARISON: None FINDINGS: No change status post bipolar prosthesis placement of the left hip. There has been some resolution of the antibiotic beatings. There remains good alignment. Prior right hip arthroplasty noted as well. IMPRESSION: Good alignment status post left hip arthroplasty
[2018-11-26 17:23] LABS: Basophils # 0.1 K/mm3 (0-0.2); Basophils % 0.6 % (0.1-2.0); Eosinophils # 0.3 K/mm3 (0.0-0.4); Eosinophils % 3.3 % (0.1-12.0); Hematocrit 37.3 % (42.0-52.0); Hemoglobin 11.5 g/dL (14.1-18.0); Lymphocytes # 2.1 K/mm3 (0.7-4.5); Lymphocytes % 23.8 % (10-50); Mean Corpuscular HGB Conc 30.7 g/dL (31.8-35.4); Mean Corpuscular Volume 94.2 fl (80-94); Mean Platelet Volume 7.1 fl (7.4-10.4); Monocytes # 0.6 K/mm3 (0.1-1.0); Monocytes % 6.4 % (1.7-9.3); Neutrophils # 5.7 K/mm3 (1.8-7.8); Neutrophils % 65.8 % (37.0-80.0); Platelet Count 723 K/mm3 (142-424); Red Blood Count 3.96 M/mm3 (4.60-6.20); White Blood Count 8.6 K/mm3 (4.8-10.8)
[2018-11-26 17:40] LABS: C-Reactive Protein 2.8 mg/L (0.0-0.9)
[2018-11-26 18:08] LABS: Erythrocyte Sedimentation Rate 96 mm/hr (0-20)
== END ==
PROVIDERS: PCP Internal Medicine Adolescent Medicine; Visit Provider Orthopaedic Surgery
DX: Z96.649 Presence of unspecified artificial hip joint (principal)
CPT/HCPCS: 36415; 73502; 85025; 85651; 86140

== ENCOUNTER → 2018-12-11 09:10 | Outpatient (CLI) | payer OTHER, SELFPAY ==
[2018-12-11 09:29] LABS: Basophils % 0.6 % (0.1-2.0); Eosinophils # 0.3 K/mm3 (0.0-0.4); Eosinophils % 7.1 % (0.1-12.0); Hematocrit 35.9 % (42.0-52.0); Hemoglobin 11.2 g/dL (14.1-18.0); Lymphocytes # 1.7 K/mm3 (0.7-4.5); Lymphocytes % 40.5 % (10-50); Mean Corpuscular HGB Conc 31.2 g/dL (31.8-35.4); Mean Corpuscular Hemoglobin 27.5 pg (27.0-31.2); Mean Platelet Volume 6.5 fl (7.4-10.4); Monocytes # 0.3 K/mm3 (0.1-1.0); Neutrophils # 1.9 K/mm3 (1.8-7.8); Neutrophils % 44.8 % (37.0-80.0); Platelet Count 375 K/mm3 (142-424); Red Blood Count 4.08 M/mm3 (4.60-6.20); Red Cell Distribution Width 14.6 % (11.5-17.5); White Blood Count 4.3 K/mm3 (4.8-10.8)
[2018-12-11 10:01] LABS: Erythrocyte Sedimentation Rate 56 mm/hr (0-20)
[2018-12-11 10:37] LABS: C-Reactive Protein < 0.2 mg/L (0.0-0.9)
--- NOTE | 2018-12-11 12:51 | XR_ITS ---
XR hip LT 2-3V w/pelvis HISTORY: ITS.REASON: sp LEFT total hip arthroplasty ORDERING PHYSICIAN: Gee Salguero MD PATIENT AGE: 58 years COMPARISON: 11/26/2018. FINDINGS: The alignment and appearance of bilateral hip prostheses appear to be stable. There are stable pelvic calcifications suggesting phleboliths. There is subchondral sclerosis at both sacroiliac joints greater on the left side and appears unchanged. There is no acute fracture. Soft tissues are stable and unremarkable. Impression: Stable exam. Both hip prostheses are stable. Stable chronic sacroiliitis bilaterally.
--- NOTE | 2018-12-11 12:51 | US_ITS ---
US extremity LT limited HISTORY: ITS.REASON: evaluatefor fluid collection around LTHIP incision ORDERING PHYSICIAN: Gee Salguero MD PATIENT AGE: 58 years COMPARISON: None Ultrasound exam was performed over the area of clinical concern which occurs at the caudal lateral left hip area. Approximately 3.0 cm deep to the surgical scar there is a thick linear hypoechoic area measuring 3.6 x 2.0 cm. The margins are irregular. Along the superior aspect is a very thin hypoechoic extension almost to the skin surface for a total length of 5.5 cm. Impression: Under of the surgical scar is a superficial hypoechoic abnormality. This is very nonspecific and could be residual postoperative inflammatory tissue, phlegmon, chronic hematoma and focal abscess is not ruled out however apparently patient clinical and laboratory values have improved however if there is any change then repeat study with possible aspiration would be considered.
== END ==
PROVIDERS: PCP Internal Medicine Adolescent Medicine; Visit Provider Orthopaedic Surgery
DX: Z96.642 Presence of left artificial hip joint (principal)
CPT/HCPCS: 36415; 73502; 76882; 85025; 85651; 86140

== ENCOUNTER → 2018-12-18 09:18 | Outpatient (CLI) | payer OTHER, SELFPAY ==
[2018-12-18 10:17] LABS: Basophils % 0.6 % (0.1-2.0); Eosinophils # 0.2 K/mm3 (0.0-0.4); Eosinophils % 3.2 % (0.1-12.0); Hematocrit 39.4 % (42.0-52.0); Hemoglobin 12.7 g/dL (14.1-18.0); Lymphocytes # 1.9 K/mm3 (0.7-4.5); Lymphocytes % 29.2 % (10-50); Mean Corpuscular HGB Conc 32.2 g/dL (31.8-35.4); Mean Corpuscular Hemoglobin 28.9 pg (27.0-31.2); Mean Corpuscular Volume 89.7 fl (80-94); Mean Platelet Volume 6.5 fl (7.4-10.4); Monocytes # 0.4 K/mm3 (0.1-1.0); Monocytes % 6.3 % (1.7-9.3); Neutrophils # 3.9 K/mm3 (1.8-7.8); Neutrophils % 60.6 % (37.0-80.0); Platelet Count 378 K/mm3 (142-424); Red Cell Distribution Width 15.2 % (11.5-17.5); White Blood Count 6.4 K/mm3 (4.8-10.8)
[2018-12-18 10:41] LABS: Erythrocyte Sedimentation Rate 64 mm/hr (0-20)
[2018-12-18 11:46] LABS: C-Reactive Protein < 0.2 mg/L (0.0-0.9)
== END ==
PROVIDERS: Visit Provider Orthopaedic Surgery
DX: Z96.642 Presence of left artificial hip joint (principal)
CPT/HCPCS: 36415; 85025; 85651; 86140

== ENCOUNTER 2019-01-16 09:00 | Outpatient (RCR) | payer OTHER, SELFPAY ==
--- NOTE | 2018-11-18 11:34 | HMH.PTOPEV ---
PT Outpatient Evaluation Rehab PT Outpatient Evaluation Start: 11/18/18 10:43 Freq: Status: Active Protocol: Document 11/18/18 11:25 PHOLONDON (Rec: 11/18/18 11:34 PHORNE [id number]) Electronically Signed By Taras Martin, PT 11/18/18 11:25 Outpatient Therapy Subjective History Subjective History Pt is 58 yowm who presents 1 wk S/P left GEO with expected post-op pain, stiffness, and edema. He reports having difficulty finding a comfortable position for rest at home which has decreased his sleeping. He reports following his HEP and posterior hip precautions that were given to him at the hospital prior to D/C. He is currently ambulating with standard walker and has minimal difficulty with transfers. He continues to be unable to perform a full SLR on the left LE, but is steadily improving with all other exercises. He has hx of prior right GEO. Chief Complaint Pain,Stiff,Swelling Symptom Type Ache,Sharp Symptoms Relieved By Rest/Positioning Symptoms Aggravated By Physical Activity,Walking Prior Functional Limitations None Current Functional Limitations Sleeping,Standing,Walking Symptom Description Constant but Variable Level of pain today (0-10) 4 Pain scale - at its worst (0-10) 8 Hip/Knee Eval Gait Observation General Gait Pattern Observation Antalgic Gait Assistive Device Assistive Devices Standard Walker Palpation Tenderness left Hip Palpation Findings Tenderness MMT Hip Flexion Strength Grade 2+ Poor+ Hip Abduction Strength Grade 2+ Poor+ Knee Extension Strength Grade 5 Normal Knee Flexion Strength Grade 5 Normal ROM Hip ROM Limitations Pain,Edema Hip ROM Reason Not Measured Within Functional Limits Knee ROM Reason Not Measured Within Functional Limits Outpatient Therapy Assessment Impairments Problems/Impairmments Palpation Tenderness,Impaired Strength,Impaired Endurance, Impaired Gait Pattern,Impaired Walking,Impaired Standing, Impaired Stair Climbing, Impaired Incline Stepping,
--- NOTE | 2018-12-25 10:36 | HMH.RHREAS ---
Rehab Reassessment Rehab OP Re-assessment Start: 12/25/18 10:33 Freq: Status: Active Protocol: Document 12/25/18 10:33 LOREN (Rec: 12/25/18 10:36 LOREN [id number]) Electronically Signed By Taras Martin, PT 12/25/18 10:33 Rehab Re-assessment Subjective Subjective Pt reports much less pain overall, he continues to report difficulty getting into /out off a car. Objective Objective Notes MMT: Left hip grossly 3+/5 throughout. Pain left hip 2/10. Assessment Progress Assessment Progressing as Expected Assessment Notes Pt with imcreasing strength and less pain. Gait has significantly improved with less internal rotation of the left hip during ambulation even without an AD. Patient goals met ST-7 Goals Not Met LT-7 Revised Goals none Plan Plan Continue per initial POC. Frequency of Therapy 2 x/wk Duration of therapy 8 wks Time and Billing Re-Eval Time 15 Re-Eval Billing Units 1 PHYSICIAN CERTIFICATION: I certify the specified therapy services for Isaiah Garza are required, authorized, and reviewed every 30 days.
== END 2019-01-16 09:05 | disposition home or self-care (01) ==
LOC: PT 09:00
PROVIDERS: Visit Provider Orthopaedic Surgery
DX: Z96.642 Presence of left artificial hip joint (principal); M25.552 Pain in left hip
CPT/HCPCS: 97010; 97014; 97110; 97116; 97163; 97164; G0283

== ENCOUNTER → 2019-02-12 09:27 | Outpatient (CLI) | payer OTHER, SELFPAY ==
--- NOTE | 2019-02-12 09:31 | XR_ITS ---
PROCEDURE: XR HIP LT 2-3V W/PELVIS CLINICAL INDICATION: sp LT total hip Follow-up hip replacement COMPARISON: from 12/11/2018 FINDINGS: Status post bipolar prosthesis placement with good alignment and no evidence of orthopedic complication. No significant change. Incidental note made of sclerosis of the SI joints on both sides and a right bipolar prosthesis also present with lucent changes in the subcapsular region of the acetabular cup. This is not significantly changed IMPRESSION: Good alignment status post left hip bipolar prosthesis placement Dictated by: Jeanmarie Taylor MD 02/12/2019 13:04 Electronically signed by Jeanmarie Taylor MD in [place] 02/12/2019 13:04
== END ==
PROVIDERS: PCP Internal Medicine Adolescent Medicine; Visit Provider Orthopaedic Surgery
DX: Z96.642 Presence of left artificial hip joint (principal); M25.552 Pain in left hip
CPT/HCPCS: 73502

== ENCOUNTER → 2019-04-26 10:01 | Outpatient (CLI) | payer OTHER, SELFPAY ==
[2019-04-26 10:28] LABS: Basophils % 0.4 % (0.1-2.0); Eosinophils # 0.2 K/mm3 (0.0-0.4); Eosinophils % 4.2 % (0.1-12.0); Hematocrit 45.8 % (42.0-52.0); Hemoglobin 14.9 g/dL (14.1-18.0); Lymphocytes # 1.5 K/mm3 (0.7-4.5); Lymphocytes % 25.8 % (10-50); Mean Corpuscular HGB Conc 32.7 g/dL (31.8-35.4); Mean Corpuscular Hemoglobin 29.3 pg (27.0-31.2); Mean Corpuscular Volume 89.8 fl (80-94); Mean Platelet Volume 7.4 fl (7.4-10.4); Monocytes # 0.4 K/mm3 (0.1-1.0); Neutrophils # 3.7 K/mm3 (1.8-7.8); Neutrophils % 63.5 % (37.0-80.0); Platelet Count 309 K/mm3 (142-424); Red Cell Distribution Width 14.3 % (11.5-17.5); White Blood Count 5.7 K/mm3 (4.8-10.8)
[2019-04-26 10:36] LABS: Activated Partial Thrombo Time 29.3 seconds (23.6-34.0); INR 0.98 (0.9-1.1); Prothrombin Time 10.2 seconds (9.4-11.8)
[2019-04-26 11:23] LABS: Chloride 105 mmol/L (98-107); Estimated Glomerular Filt Rate 87 ml/min (>60); GFR (African American) 105 ML/MIN (>60)
[2019-04-26 11:24] LABS: Alanine Aminotransferase 27 U/L (12-78); Albumin Level 3.6 gm/dL (3.4-5.0); Albumin/Globulin Ratio 1.1 (1.1-1.8); Alkaline Phosphatase 82 U/L (46-116); Anion Gap 14.3 mEq/L (5-15); Aspartate Amino Transferase 21 U/L (15-37); Bilirubin,Total 0.6 mg/dL (0.2-1.0); Blood Urea Nitrogen 7 mg/dL (7-18); Calcium 8.7 mg/dL (8.5-10.1); Carbon Dioxide 29 mmol/L (21.0-32.0); Chol/HDL Ratio 3.7 (1-3.5); Cholesterol 148 mg/dL (140-200); Globulin 3.3 gm/dl (1.3-3.2); Glucose 115 mg/dL (74-106); HDL Cholesterol 40 mg/dL (27-67); LDL Cholesterol 95 mg/dL (0-130); Potassium 4.3 mmoL/L (3.5-5.1); Sodium 144 mmol/L (136-145); Total Protein,Serum 6.9 gm/dL (6.4-8.2); Triglycerides 65 mg/dL (30-200); VLDL Cholesterol 13 mg/dL (0-40)
[2019-04-26 11:31] LABS: Hemoglobin A1C 6.2 % (0.0-7.0)
== END ==
PROVIDERS: Visit Provider Nurse Practitioner Family
DX: Z01.818 Encounter for other preprocedural examination (principal); M17.11 Unilateral primary osteoarthritis, right knee; E78.2 Mixed hyperlipidemia
CPT/HCPCS: 36415; 80053; 80061; 83036; 85025; 85610; 85730

== ENCOUNTER → 2019-04-29 14:49 | Outpatient (CLI) | payer OTHER, SELFPAY ==
--- NOTE | 2019-04-29 14:53 | XR_ITS ---
PROCEDURE: XR KNEE RT 4V CLINICAL INDICATION: right knee pain COMPARISON: No exams were available for comparison FINDINGS: No fracture or dislocation. No lytic or blastic change. There is normal mineralization. There is tricompartmental osteoarthritis greatest at the lateral compartment joint space and to least degree of medial compartment. Other findings:A small suprapatellar joint effusion is noted. IMPRESSION: Osteoarthritis with small joint effusion with no acute bone pathology Dictated by: dEil Zurita 04/29/2019 15:32 Electronically signed by Edil Zurita in [place] 04/29/2019 15:32
--- NOTE | 2019-04-29 14:53 | XR_ITS ---
PROCEDURE: XR HIP LT 2-3V W/PELVIS CLINICAL INDICATION: sp LT total hip arthroplasty, dos 11/11/18 COMPARISON: XR HIP LT 2-3V W/PELVIS from 02/12/2019 FINDINGS: There has been bilateral total hip arthroplasty. No fracture or dislocation is evident. Lucencies associated with the mentasta acetabulae right much greater than left are unchanged from the previous exam and favored to represent pre-existing subchondral cyst formation. Bilateral sacroiliitis is incidentally noted. Unremarkable soft tissues. IMPRESSION: No acute findings. No significant change from 02/12/2019 status post bilateral total hip arthroplasty Dictated by: Edil Zurita 04/29/2019 15:38 Electronically signed by Edil Zurita in [place] 04/29/2019 15:38
--- NOTE | 2019-04-29 14:53 | XR_ITS ---
PROCEDURE: XR CHEST 2V CLINICAL HISTORY: H/O TOBACCO USE COMPARISON: No exams were available for comparison FINDINGS: The cardiomediastinal silhouette and pulmonary vascularity are within normal limits. The lungs are clear without infiltrates, suspicious nodules, or pleural effusions. No acute bony abnormalities. IMPRESSION: No acute findings. Dictated by: Edil Zurita 04/29/2019 15:44 Electronically signed by Edil Zurita in [place] 04/29/2019 15:44
== END ==
PROVIDERS: PCP Internal Medicine Adolescent Medicine; Visit Provider Orthopaedic Surgery
DX: Z01.818 Encounter for other preprocedural examination (principal); Z96.642 Presence of left artificial hip joint; M17.11 Unilateral primary osteoarthritis, right knee
CPT/HCPCS: 71046; 73502; 73564

== ENCOUNTER → 2019-05-10 10:05 | Outpatient (CLI) | payer OTHER, SELFPAY | PROVIDERS: Visit Provider Orthopaedic Surgery | DX: Z01.818 Encounter for other preprocedural examination (principal) | CPT/HCPCS: 36415; 86850 ==

== ENCOUNTER 2019-05-12 06:15 | Observation (INO) | payer OTHER, SELFPAY ==
[2019-05-12] VITALS (22 sets, daily range): BP systolic 108–161; BP diastolic 57–98; PULSE 53–75; RESP 16–20; TEMP 36.2–43; O2SAT 95–100; BMI 37.4
--- NOTE | 2019-05-12 06:30 | ECG_ITS ---
APPROVED REPORT Exam: Resting ECG HR:57 bpm ECG Measurements Heart Rate 57 AXES MD 200 P 28 QRSd 98 QRS 1 QT 398 T 22 QTc 387 <Conclusion> Sinus bradycardia,Otherwise a Normal EKG Electronically signed by : Pradeep Grimm, 05/12/2019 08:57:46
[2019-05-12 07:31] LABS: Appearance,Urine CLEAR (Clear); Bilirubin,Urine Negative (Negative); Blood, Urine Negative (Negative); Color,Urine YELLOW (Yellow); Glucose,Urine (UA) Negative (Negative); Ketones,Urine Negative (Negative); Leukocyte Esterase,Urine Negative (Negative); Microscopic, Urine URINE MICROSCOPIC (MICROSCOPIC); Nitrate,Urine Negative (Negative); Protein,Urine Negative (Negative); Specific Gravity, Urine 1.025 (1.005-1.030); Urobilinogen,Urine 0.2 EU/dl (0.2)
[2019-05-12 08:21] LABS: WBC,Urine Occasional #/hpf (0-3)
[2019-05-12 08:22] LABS: Bacteria,Urine Trace /lpf; RBC,Urine Occasional #/hpf (0-3)
--- NOTE | 2019-05-12 09:11 | SUR.OPER ---
0910-increased tourniquet pressure from 300-325
--- NOTE | 2019-05-12 11:06 | SUR.OPER ---
1105-additional 1gm of ancef given per anesthesia at this time. Ordered per .
--- NOTE | 2019-05-12 13:02 | P.PN_ITS ---
[facility] Anesthesia Checklist - Patient Identification Patient Identification: Arm Band - Structural Data Admitted From: Home Planned Operative Procedure/s: right total knee arthroplasty Consent for Planned Operative Procedure(s) Verified: Yes Verified Documents: Surgical Consent, History and Physical - NPO Status Verified Time NPO: 00:00 - Additional verifications Anesthesia Reactions: No Hx Blood Transfusions: No Blood Transfusion Reaction: No - Airway Assessment C-Spine Mobility Assessed: Yes (mp2) TMJ Mobility Assessed: Yes Dentition: Good Dentition - Neurological Assessment Level of Consciousness: Awake, Alert - Anesthesia Plan Anesthesia Risk discussed: Yes Anesthesia Plan: Verified ASA Class: II Anesthesia Type: General w/block (Femoral/sciatic nerve block per surgeon request. Risks/benefits explained. Pt verbalizes understanding) [facility] History I have reviewed the patient's past medical history: Yes Medical History: Reports:: Hyperlipidemia Denies:: Cancer, Diabetes Mellitus Type 1, Diabetes Mellitus Type 2, Internal Pacemaker, MRSA, Seizures *Have you ever received a pneumonia vaccine?: No *Have you received a flu vaccine this season?: No Other Medical History: Reports: Arthritis. Denies: Blood Transfusion Reaction Anesthesia experience/problems:: nac Laterality Cases: Right: Arthroscopy Knee, Bilateral: Total Hip Replacement Other Surgeries: No: Pacemaker Amputation: No Fractures: No - *Social History Educational Level: Attended College Smoking Status: Current every day smoker Tobacco Type: cigarettes # Packs/Day (cigarettes): 1 Alcohol Intake: never Alcohol Intake Frequency:: holidays/special occasions only Substance Use Type: denies use *Occupational Status:: employed Housing: house Household Members: family *Travel in the last 8 weeks: None Family Hx:: No significant family history, Non-contributory
--- NOTE | 2019-05-12 13:02 | XR_ITS ---
PROCEDURE: XR KNEE RT 2V CLINICAL INDICATION: post op total knee arthroplasty COMPARISON: XR KNEE RT 4V from 04/29/2019 FINDINGS: There are 2 intraoperative views showing placement of a total knee prosthesis. There is some postoperative air and increased density likely edema anterior. There is no other radiopaque foreign body. The alignment in remainder of the bone density is normal. IMPRESSION: Postoperative exam. Dictated by: Christopher Stubbs 05/12/2019 18:26 Electronically signed by Christopher Stubbs in [place] 05/12/2019 18:26
--- NOTE | 2019-05-12 13:03 | HMH.ANESI ---
[facility] Anesthesia Record Part I Intake, IV Amount: 2,100 Estimated blood loss (mL): 100 Urine output (mL): 200 Blood Pressure: 118/83 SaO2: 96 Pulse Rate: 56 Respiratory Rate: 16 Temperature: 97.1 F Patient is:: Drowsy, Stable Stable to PACU at:: 12:55
--- NOTE | 2019-05-12 13:55 | PC.NURSE ---
1310-radiology at bedside 1314-knee immobilizer applied 1327-detailed report called to Karol,RN 1332-pt transported to med surg unit room 208 via hospital bed with audra rails up and left in care of [facility] Roberson with bed locked in lowest position, vss, pt stable, family at bedside
--- NOTE | 2019-05-12 13:55 | HMH.ANESII ---
[facility] Anesthesia Record Part II Discharge Time: 12:55 Destination: Medical Surgical Department PACU nurse assessment reviewed?: Yes Patient Condition:: Good Anesthesia Complications:: None Swallowing reflex intact?: Yes Cyanosis?: No Blood Pressure: 118/83 Pulse Rate: 56 Temperature: 97.1 F Mental Status: Alert & Oriented Pain level:: 0 Nausea and/or vomitting:: None Intake, IV Amount: 0
--- NOTE | 2019-05-12 15:04 | HMH.OPNOTE ---
Date of procedure: 05/12/19 Pre-op Diagnosis:: Advanced degenerative arthritis, right knee Post-op Diagnosis:: Same Procedure performed:: Uncemented total knee arthroplasty, right knee Surgeon:: Gee Salguero MD Metallurgy Laboratory Technician(s):: Gina Pickard COTTON JAMMER:: Butch Love Anesthesia: GETA, regional (Fem-sciatic nerve block) Estimated blood loss (mL): 100 Clinical Note:: Patient is a 58-year-old male with end-stage osteoarthritis and [id number] changes over the lateral compartment with a progressive and significant valgus deformity and flexion contracture presented with unremitting severe pain not relieved by conservative management. The deformity and pain have advanced to the point that it is becoming a hazard for the patient with risk of falling and injuring himself. A total knee arthroplasty is indicated to relieve the pain, correct the deformity, improve function, reduce the risk of falls and improve quality of life. Please refer to my office note for full details. Operative findings:: As noted on the preoperative evaluation, the knee joint had a partially correctable valgus deformity of 15 degrees and flexion contracture of 5 degrees. As seen on the x-rays, there are tricompartmental degenerative changes with the lateral and patellofemoral compartments showing advanced changes with [id number] appearance. The lateral femoral condyle is hypoplastic contributing to the significant valgus deformity. The menisci and cruciate ligaments are significantly degenerated. There is extensive osteophyte formation over all 3 compartments. There were a couple of loose bodies at the back of the knee. Bone quality is good. Operative note:: On the day of the surgery the patient was seen in the preoperative area. I have again reviewed the clinical and x-ray findings with him. I have again discussed the diagnosis, natural history and management options in detail including both nonsurgical and surgical. He has end-stage degenerative arthritis of his RIGHT knee with valgus deformity and has failed to respond satisfactorily to conservative management so far and has opted for a RIGHT total knee arthroplasty. Patient continues to have significant pain and dysfunction with his knee and the knee joint also gives out and he is at risk of falls potentially resulting in fractures. We have again discussed the details of the procedure, risks and benefits and alternatives in detail. The complications discussed include but are not limited to infection, injury to nerves and blood vessels including injury to popliteal artery, injury to tendons and ligaments, DVT and PE, fat embolism, intraoperative fracture, limb length inequality, patella fracture, patellofemoral instability, patellar clunk syndrome, quadriceps and patellar tendon rupture, implant failure, component loosening, periprosthetic femur and tibia fractures, stiffness(arthrofibrosis), limp, incomplete relief of pain, incomplete functional recovery, likely need for further surgery in future including revision and anesthetic complications including heart attack, stroke and even . We discussed how any of these events can be devastating. We have discussed nonsurgical alternatives as well. Given that he has significant valgus deformity, I have also discussed the specific complications related to surgery on a valgus knee. These include but are not limited to peroneal nerve palsy, tibiofemoral and patellofemoral instability, loss of range of movements, patellar dislocation or subluxation and likely need for use of constrained implants. We also discussed about using uncemented components if appropriate at the time of surgery. Patient understands and wishes to proceed with a RIGHT total knee arthroplasty and I believe that he is fully informed as to the risks, benefits, and alternatives including nonsurgical alternatives. We also discussed the postoperative course including the rehab and physical therapy required. A physical exami
--- NOTE | 2019-05-12 15:09 | HMH.PHAVTE ---
[facility] VTE Monitoring - Patient Demographics Admission date: 05/12/19 Report Date: 05/12/19 Time: 15:10 Allergies/Adverse Reactions: Patient Allergies No Known Allergies Allergy (Verified 04/29/19 15:55) Height: 1.83 m Weight: 125.191 kg - VTE Risk VTE Score: 4 VTE Risk Level: Low Risk - Prophylaxis VTE Prophylaxis Ordered?: Yes Types of VTE Prophylaxis: IPCS Thigh High, Pharmacological Location of Applied Device: Left Leg Pharmacologic Type: Other (XARELTO)
--- NOTE | 2019-05-12 16:22 | SW/DCPLANNER ---
I have spoke with this patient regarding discharge plans. Patient had recently finished surgery at time of my visit. Patient stated that his plans pending no setbacks will be to go to his girlfriends house once ready for discharge. I will follow up with this patient once PT evaluates him in the AM.
--- NOTE | 2019-05-12 17:23 | P.PN_ITS ---
Subjective Date: 05/12/19 Time: 16:00 Interval history: Patient is status post right total knee arthroplasty post op day #0. He was admitted to hospital following an elective uncomplicated right total knee arthroplasty earlier today. Patient is lying down in the bed and says he is doing well. Patient had FM setting nerve blocks and reports no pain in his right knee. No history of any nausea or vomiting. No history of any cough, chest pain, shortness of breath or palpitations. He is complaining of pain from indwelling urinary catheter. PN: Obj Ex Vital signs: Temp Pulse Resp BP Pulse Ox 97.9 F 71 16 158/71 H 99 05/12/19 16:30 05/12/19 16:30 05/12/19 16:30 05/12/19 16:30 05/12/19 16:30 Narrative: Exam General appearance: alert, active, awake, no acute distress Cardiovascular: regular rate & rhythm, normal peripheral pulses Respiratory: No respiratory distress noted, speaks in full sentences ABD: soft and non tender Neuro: alert, awake, oriented x 3 Genitourinary: Catheter in situ. On examination of the lower extremities the limb lengths are equal. Thigh and calf are soft and nontender. On examination of the right knee the dressings are clean, dry and intact. There is no soakage of the dressings. Distal pulses are 2+. Postoperative check x-rays are satisfactory with good alignment and fixation of the components. - Urinary Catheter Management Coude Cath placed during this visit: Yes Urethral indwelling: Yes Reason for continuing: Surgical procedure Progress Note: A&P Assessment and Plan for All Diagnoses:: I have reviewed the operative findings and procedure performed with the patient and family. I have given paper copies of postoperative x-rays to them. Patient is doing well after surgery and vital signs are stable. DC urinary catheter. Patient can be mobilized weightbearing as tolerated on the right side with physi jerod therapy. Advised him to avoid placing pillow behind the knee; use knee immobilizer when weightbearing and walking until he regains full quadriceps control and is able to actively straight leg raise. To be seen by PT and to start standard PT protocol for a primary total knee replacement. Continue DVT prophylaxis and as needed pain medication. Care management consult regarding discharge planning.
--- NOTE | 2019-05-12 17:30 | INFXCTL.NOTE ---
pt is resting in bed with family at bedside. pt was complaining of discomfort in his left elbow earlier this afternoon. ice pack was applied and pt states it has helped. pt received pain medication for knee discomfort that he rated 5/10. lung sounds clear. bowel sounds normal. pt states he is a smoker but refused nicotine patch. eating and drinking well. polar pack noted to rle. dressing to rle c/d/i. will continue to monitor.
--- NOTE | 2019-05-12 19:13 | PC.NURSE ---
report given to carmen
--- NOTE | 2019-05-12 19:55 | PC.NURSE ---
right lower extremity straight with foot elevated on pillow, dressings clean, dry and intact. polar pack in place. pedal pulse + 2, cap refill right lower extremity < 3 sec. foot warm to touch. patient admits to continued numbness from surgery. denies pain or nausea at this time. will continue to monitor.
[2019-05-13] VITALS (7 sets, daily range): BP systolic 110–138; BP diastolic 61–82; PULSE 75–92; RESP 15–19; TEMP 36.6–37.1; O2SAT 96–100; BMI 38.7
--- NOTE | 2019-05-13 04:12 | PC.NURSE ---
right knee dressing clean, dry and intact, moving toes and has sensation on bottom of foot. cap refill < 3 sec, warm and pink to touch. patient anxious regarding pain when the block wears off. will continue to monitor.
[2019-05-13 06:55] LABS: Basophils % 0.3 % (0.1-2.0); Eosinophils # 0.1 K/mm3 (0.0-0.4); Eosinophils % 0.5 % (0.1-12.0); Hematocrit 36.9 % (42.0-52.0); Hemoglobin 12.4 g/dL (14.1-18.0); Lymphocytes # 1.5 K/mm3 (0.7-4.5); Lymphocytes % 16.1 % (10-50); Mean Corpuscular HGB Conc 33.5 g/dL (31.8-35.4); Mean Corpuscular Hemoglobin 29.5 pg (27.0-31.2); Mean Corpuscular Volume 88.3 fl (80-94); Mean Platelet Volume 7.4 fl (7.4-10.4); Monocytes # 0.8 K/mm3 (0.1-1.0); Monocytes % 8.1 % (1.7-9.3); Neutrophils # 7.2 K/mm3 (1.8-7.8); Neutrophils % 75.1 % (37.0-80.0); Platelet Count 270 K/mm3 (142-424); Red Blood Count 4.18 M/mm3 (4.60-6.20); Red Cell Distribution Width 14.7 % (11.5-17.5); White Blood Count 9.5 K/mm3 (4.8-10.8)
[2019-05-13 07:00] LABS: Anion Gap 13.5 mEq/L (5-15); Blood Urea Nitrogen 11 mg/dL (7-18); Calcium 7.7 mg/dL (8.5-10.1); Carbon Dioxide 26 mmol/L (21.0-32.0); Chloride 104 mmol/L (98-107); Creatinine Clearance Estimated 149 mL/min (50-200); Creatinine,Serum 0.99 mg/dL (0.70-1.30); Estimated Glomerular Filt Rate 78 ml/min (>60); GFR (African American) 94 ML/MIN (>60); Glucose 137 mg/dL (74-106); Potassium 3.5 mmoL/L (3.5-5.1); Sodium 140 mmol/L (136-145)
--- NOTE | 2019-05-13 08:38 | PC.NURSE ---
kike from pt in room at this time
--- NOTE | 2019-05-13 08:49 | HMH.OTEV ---
OT Inpatient Evaluation Rehab OT IP Evaluation Start: 05/12/19 14:17 Freq: ONCE Status: Complete Protocol: Document 05/13/19 08:44 TFRY (Rec: 05/13/19 08:49 TFRY [id number]) Rehab OT IP Assessment Subjective History This is a 58 year old male admitted to the hospital for TKA. Patient reports that he was independent prior to admission to the hospital. Patient reports that he has equipment at home from previous surgeries. Objective Patient Orientation Person,Place,Time,Name,Age, Birthday,Day of Month,Day of Week Upper Extremity Gross ROM WNL Bed Mobility bed mobility - supine/sit Assist Level Independent Transfer Training Sit/Stand/Step Transfer Assist Level Supervision/Stand by Chair Transfer Ability Supervision/Stand by Chair Transfer Technique Sit to/from Ambulatory Chair Transfer Assistive Devices Rolling Walker Feeding Ability Independent Lower Body Dressing Ability Standby Assistance Rehab OT IP prob,goals,plan Problems Date of Evaluation: 05/13/19 Rehab Potential Rehab Potential Innapropriate for Skilled Therapy Discharge Plan OT Discharge Plan Home with family. Eval Complexity Eval Charge Codes 59890 - Low Complexity G Codes G -code Required No PHYSICIAN CERTIFICATION: I certify the specified therapy services for Isaiah Garza are required, authorized, and reviewed every 30 days.
--- NOTE | 2019-05-13 12:19 | P.PN_ITS ---
Subjective Date: 05/13/19 Time: 11:00 Principal diagnosis: Status post total knee arthroplasty, right Interval history: Patient is status post right total knee arthroplasty post op day # 1. Patient is sitting out on the chair and says he is doing well. Patient says the nerve blocks are gradually wearing off and he has little bit of pain in the knee. No history of any nausea or vomiting. No history of any cough, chest pain, shortness of breath or palpitations. He is eating and drinking well. PN: Obj Ex Vital signs: Temp Pulse Resp BP Pulse Ox 97.9 F 76 18 129/79 100 05/13/19 11:16 05/13/19 11:16 05/13/19 11:16 05/13/19 11:16 05/13/19 11:16 Narrative: Laboratory Results - last 24 hr 05/13/19 06:09: WBC 9.5, RBC 4.18 L, Hgb 12.4 L, Hct 36.9 L, MCV 88.3, MCH 29.5, MCHC 33.5, RDW 14.7, Plt Count 270, MPV 7.4, Neut % (Auto) 75.1, Lymph % (Auto) 16.1, Baldwin % (Auto) 8.1, Eos % (Auto) 0.5, Baso % (Auto) 0.3, Neut # (Auto) 7.2, Lymph # (Auto) 1.5, Baldwin # (Auto) 0.8, Eos # (Auto) 0.1, Baso # (Auto) 0.0 05/13/19 06:09: Sodium 140, Potassium 3.5, Chloride 104, Carbon Dioxide 26, Anion Gap 13.5, BUN 11, Creatinine 0.99, Estimated Creat Clear 149, Estimated GFR 78, Est GFR ( Amer) 94, Glucose 137 H, Calcium 7.7 L Intake & Output 05/11/19 05/12/19 05/13/19 05/14/19 11:59 11:59 11:59 11:59 Intake Total 5304 / 5304 Output Total 1625 / 1625 Balance 3679 / 3679 Weight 276 lb 285 lb 7 oz Exam General appearance: alert, active, awake, no acute distress Cardiovascular: regular rate & rhythm, normal peripheral pulses Respiratory: No respiratory distress noted, speaks in full sentences ABD: soft and non tender Neuro: alert, awake, oriented x 3 On examination of the lower extremities the limb lengths are equal. Thigh and calf are soft and nontender. On examination of the right knee the dressings are clean, dry and intact. There is no soakage of the dressings. Distal pulses are 2+. He still has some residual numbness over the right foot and ankle. He has good range of active foot, ankle and toe movements. - Urinary Catheter Management Coude Cath placed during this visit: no Urethral indwelling: Yes Progress Note: A&P (1) Primary osteoarthritis of right knee Status: Acute Current Visit: Yes (2) History of total knee arthroplasty Status: Acute Current Visit: Yes (3) Class II obesity Status: Acute Current Visit: No Assessment and Plan for All Diagnoses:: I have reviewed the clinical findings and progress with the patient. He is doing well and reports no problems; his pain is well controlled and his vital signs are stable. Continue mobilization weightbearing as tolerated on the right side with physical therapy. Advised him to avoid placing pillow behind the knee; use knee immobilizer when weightbearing and walking until he regains full quadriceps control and is able to actively straight leg raise. Continue PT/OT and standard PT protocol for a primary total knee replacement. Continue DVT prophylaxis and as needed pain medication. Possible discharge home with outpatient physical therapy tomorrow.
--- NOTE | 2019-05-13 13:00 | CARE MANAGER ---
Spoke with patient about discharge plans. He reports he plans to go home and his girlfriend will drive him to and from outpatient therapy. He has all the DME equipment he may need already.
--- NOTE | 2019-05-13 17:40 | PC.NURSE ---
At the beginning of my shift, pt was able to ambulate with phys therapy. pt tolerated this well. pt remained in the chair until approx 1640. was assisted to bed times 2. lung sounds are clear, bowel sounds are active. pt does endorse pain in r knee r.t surgery. nad noted at this time. will continue to monitor.
[2019-05-14 04:00] VITALS: BP 147/87; PULSE 82; RESP 20; TEMP 36.8; O2SAT 98
--- NOTE | 2019-05-14 04:39 | PC.NURSE ---
PT ALERT AND ORIENTED. SLEPT LONG INTERVALS TONIGHT. RESPIRATIONS EVEN AND UNLABORED ON ROOM AIR. BREATH SOUNDS CLEAR. SCUD ON L LEG. PT'S RT KNEE HAS TARA WRAP ON IT AND ICE PACK PRN. ZAC. FEET TRACE EDEMA. BOTH FEET + PEDAL PULSES. CAP REFILL <3 SECONDS ON ALL EXTREMITIES. PT C/O PAIN AND RECEIVED PAIN MEDS THREE TIMES THIS SHIFT OF THIS TIME. IV SECURE AND PATENT, SALINE LOCKED. PT STATES THINKS HE MAY GET TO GO HOME TODAY. PT DOES NOT HAVE ANY LABS ORDERED FOR THIS A.M. PT STABLE. WILL CONTINUE TO MONITOR. REPORT TO BE GIVEN TO ONCOMING NURSE.
[2019-05-14 05:00] VITALS: BMI 38.8
[2019-05-14 08:00] VITALS: BP 101/71; PULSE 74; RESP 16; TEMP 36.6; O2SAT 94
[2019-05-14 12:00] VITALS: BP 126/72; PULSE 75; RESP 16; TEMP 36.8; O2SAT 99
--- NOTE | 2019-05-14 13:52 | PC.NURSE ---
Called milking machine operator to pg dr Salguero @ [phone].
--- NOTE | 2019-05-14 13:57 | PC.NURSE ---
Dr. Salguero called back @ [phone] and plans to see pt today and d/c home.
[2019-05-14 16:00] VITALS: BP 126/74; PULSE 75; RESP 16; TEMP 36.8; O2SAT 98
--- NOTE | 2019-05-14 16:00 | HMH.DCSUM ---
General - General Admission date:: 05/12/19 Discharge date: 05/14/19 HPI HPI: Patient is a 58-year-old male with advanced degenerative joint disease of the right knee who is admitted to the hospital electively following an uncomplicated primary total knee arthroplasty on 05/12/2019. Prior to surgery patient had long-standing pain, stiffness and disability secondary to advanced degenerative arthritis in his right knee. He has not responded well to conservative management including NSAID, Tylenol, and intra-articular injections in the past. His walking distance and ADLs are adversely affected; he also has history of night pain and sleep disturbance. The knee feels unstable and he is at risk of falling and injuring himself. A total knee arthroplasty is indicated to reduce the risk of falls, improve the pain, mobility and quality of life. The surgical and nonsurgical alternatives were discussed in detail with the patient as well as the risks and benefits of the surgery. Patient is fairly healthy and has a history of hypertension, hyperlipidemia, obesity and osteoarthritis. He previously had successful bilateral total hip arthroplasties. Hospital Course Hospital Course: Patient underwent an uncomplicated straightforward primary right total knee arthroplasty on 05/12/2019. Following surgery patient was admitted to hospital and progressed well without any complications. The postoperative check x-ray was satisfactory with good alignment and fixation of the components. Patient progressed rapidly with physical therapy and was able to mobilize using a walker. After 2 days of hospital stay for observation, patient was discharged to home with self-care on 05/14/2019. Patient is planning to do outpatient physical therapy at [facility]. At the time of discharge he has not yet regained good quadriceps control and is not able to actively straight leg raise. Patient has moderate pain and his pain is well controlled with as needed oral medication. The incision is healthy and healing well. No signs of any erythema, induration or discharge noted. Patient was started on Xarelto 10 mg daily for DVT prophylaxis after surgery. The neurovascular status in both lower extremities is intact. Pedal pulses 2+ bilaterally and fully sensate distally. No clinical evidence of DVT noted. Patient was cleared for discharge by physical therapy. On the day of discharge, the patient has been stable. Patient's vital signs have been stable throughout and patient is afebrile at the time of discharge. He is being discharged home with family/self-care. He has outpatient physical therapy scheduled. Condition at discharge: improved and stable. Treatments and Procedures: Total knee arthroplasty, right knee; date of surgery 05/12/2019. Objective Vital signs: Temp Pulse Resp BP Pulse Ox 98.3 F 75 16 126/72 99 05/14/19 12:00 05/14/19 12:00 05/14/19 12:00 05/14/19 12:00 05/14/19 12:00 no acute distress, obese - *Routine HEENT Exam Head: Present: normocephalic, atraumatic Eye: Present: EOMI ENT: Present: mucous membranes moist - *Routine Neck Exam Present: supple, full ROM, trachea midline - *Routine Respiratory Exam Present: CTA bilaterally - *Routine Cardiovascular Exam Present: RRR, Normal S1, Normal S2 - *Routine Abdominal Exam Present: soft, normoactive bowel sounds - *Routine Extremities Exam Comments: On examination of the lower extremities the limb lengths are equal. On examination of the right knee the incision is clean, dry and healthy. No signs of infection or other complications are noted. There is minimal swelling and ecchymosis around the knee as to be expected at this stage. Knee range of movements is 5 to 60 degrees of flexion. Patient has not yet regained good quadriceps activation and is not about able to actively straight leg raise. Calf is soft and nontender. Distal pulses are 2+. Capillary refill i
== END 2019-05-14 17:30 | disposition home or self-care (01) ==
LOC: 2ND 06:15
PROVIDERS: Admitting Provider Orthopaedic Surgery; PCP Internal Medicine Adolescent Medicine; Visit Provider Orthopaedic Surgery
PROC: (CPT 27447; principal; 2019-05-12 07:30)
DX: M17.11 Unilateral primary osteoarthritis, right knee (principal); M16.0 Bilateral primary osteoarthritis of hip; Z96.643 Presence of artificial hip joint, bilateral; Z72.0 Tobacco use; Z79.899 Other long term (current) drug therapy; Z79.1 Long term (current) use of non-steroidal anti-inflammatories (NSAID)
CPT/HCPCS: 27447; 36415; 73560; 80048; 81001; 85025; 93005; 96374; 97110; 97116; 97165; 97530; C1776; G0378; J2405; J2710; J3370

== ENCOUNTER → 2019-06-17 07:43 | Outpatient (CLI) | payer OTHER, SELFPAY ==
--- NOTE | 2019-06-17 07:47 | XR_ITS ---
PROCEDURE: XR KNEE RT 2V CLINICAL INDICATION: sp RT TKA, dos 05/12/19 Follow-up knee replacement COMPARISON: XR KNEE RT 4V from 04/29/2019 XR KNEE RT 2V from 05/12/2019 FINDINGS: Status post total knee arthroplasty with good alignment. No fracture or dislocation or prosthesis malfunction evident. Postsurgical gas no longer apparent IMPRESSION: Good alignment status post total knee prosthesis placement Dictated by: Jeanmarie Taylor MD 06/17/2019 15:11 Electronically signed by Jeanmarie Taylor MD in [place] 06/17/2019 15:11
== END ==
PROVIDERS: PCP Internal Medicine Adolescent Medicine; Visit Provider Orthopaedic Surgery
DX: Z96.659 Presence of unspecified artificial knee joint (principal); M17.11 Unilateral primary osteoarthritis, right knee
CPT/HCPCS: 73560

== ENCOUNTER 2019-07-11 08:00 | Outpatient (RCR) | payer OTHER, SELFPAY ==
--- NOTE | 2019-05-19 11:33 | HMH.PTOPEV ---
PT Outpatient Evaluation Rehab PT Outpatient Evaluation Start: 05/19/19 11:23 Freq: Status: Active Protocol: Document 05/19/19 11:23 LOREN (Rec: 05/19/19 11:33 PHORNE [id number]) Electronically Signed By Taras Martin, PT 05/19/19 11:23 Outpatient Therapy Subjective History Subjective History Pt is 58 yowm who presents 1 wk S/P right TKA with expected post-op edema and c/o significant pain. He reports following all instructions given while an inpatient, but his pain has been considerable , especially with movement. He has hx of left GEO ~ 5 mos ago. Chief Complaint Pain,Stiff Symptom Type Ache,Throb,Sharp Symptoms Relieved By Rest/Positioning,Ice Symptoms Aggravated By Physical Activity,Walking Prior Functional Limitations None Current Functional Limitations Sleeping,Walking Symptom Description Constant but Variable Level of pain today (0-10) 7 Pain scale - at its worst (0-10) 9 Hip/Knee Eval Gait Observation General Gait Pattern Observation Antalgic Gait Assistive Device Assistive Devices Standard Walker Palpation Tenderness right Knee Palpation Finding Tenderness MMT Hip Flexion Strength Grade 3 Fair Hip Abduction Strength Grade 3 Fair Hip Adduction Strength Grade 3 Fair Hip Extension Strength Grade 3 Fair Knee Extension Strength Grade 2 Poor Knee Flexion Strength Grade 2 Poor ROM Knee Extension Active Range of Motion ( -4 degrees) Knee Extension Passive Range of Motion ( 0 degrees) Knee Flexion Active Range of Motion ( 36 degrees) Knee Flexion Passive Range of Motion ( 50 degrees) Outpatient Therapy Assessment Impairments Problems/Impairmments Palpation Tenderness,Impaired Range of Motion,Impaired Strength,Impaired Endurance, Impaired Gait Pattern,Impaired Walking,Impaired Standing, Impaired Stair Climbing, Impaired Recreational Activities,Impaired Work Activities,Increased Edema, Subjective C/O Pain,Impaired Self Care/Self Management Prognosis Rehab Potential Good Clinical Impression Consistent with Diagnosis Yes Short Term Goals Number of Weeks
--- NOTE | 2019-06-17 11:07 | HMH.RHREAS ---
Rehab Reassessment Rehab OP Re-assessment Start: 06/17/19 11:03 Freq: Status: Active Protocol: Document 06/17/19 11:04 LOREN (Rec: 06/17/19 11:07 LOREN [id number]) Electronically Signed By Taras Martin, PT 06/17/19 11:04 Rehab Re-assessment Subjective Subjective Pt reports he feels better overall, but remains very stiff. Objective Objective Notes PROM R knee: 0-100 deg. Assessment Progress Assessment Slower Than Expected Assessment Notes Pt has made significant progress, but A/PROM lagging behind what would be expected. He is performing well with exercises in the clinic. Patient goals met ST,2,3,4,5,6 Goals Not Met LT,2,3,4,5,6 Revised Goals None Plan Plan Continue per initial POC. Frequency of Therapy 3 x/wk Duration of therapy 8 wks Time and Billing Re-Eval Time 15 Re-Eval Billing Units 1 PHYSICIAN CERTIFICATION: I certify the specified therapy services for Isaiah Garza are required, authorized, and reviewed every 30 days.
== END 2019-07-11 08:05 | disposition home or self-care (01) ==
LOC: PT 08:00
PROVIDERS: PCP Internal Medicine Adolescent Medicine; Visit Provider Orthopaedic Surgery
DX: M25.561 Pain in right knee (principal); Z96.651 Presence of right artificial knee joint
CPT/HCPCS: 97010; 97014; 97016; 97110; 97140; 97163; 97164; 97760; G0283

== ENCOUNTER → 2019-08-18 08:14 | Outpatient (CLI) | payer OTHER, SELFPAY ==
--- NOTE | 2019-08-18 08:21 | CT_ITS ---
PROCEDURE: CT LUNG SCREENING CLINICAL INDICATION: CURRENT TOBACCO USE COMPARISON: No exams were available for comparison TECHNIQUE: The exam was performed on a GE Light Speed [address] scanner using 2.90 mGy CTDI. A low dose helical CT CHEST was performed on a multi-detector scanner. All CT scans at the facility use one or more dose reduction, viz: automated exposure control, ma/kV adjustment per patient size (including targeted exams where dose is matched to indication, i.e. head), or iterative reconstruction technique. The LDCT was performed in a facility that meets the criteria for the screening program. Data regarding this exam was submitted to ACR which is an approved registry. The order for this exam indicates that it came as a result of a lung cancer screening counseling shard decision-making visit that included all the elements required of such a visit including smoking cessation. The radiologist interpreting this exam meets the CMS criteria for the LDCT lung cancer screening program. The exam is reported using the Lung-RADS classification scale and reported to the ACR registry. NOTE: This study was performed for the specific purposes of lung cancer screening and is not an alternative to diagnostic chest CT. RADIATION DOSE: CTDI vol(CT dose Index-volume) = 2.90mG DLP (Dose Length Product) = 106.29 mGcm Lung Rads Category: 4A-suspicious FINDINGS: A routine low-dose lung cancer screening CT was performed. A band like density in the inferior lingula is felt to be most consistent with scarring. In the right lower lobe there is an indeterminate noncalcified pulmonary nodule measuring approximately 12 millimeters image 69 series series 601 and images 61-63 series 4. This is suspicious. Post inflammatory scar, atelectasis, or neoplastic lesion would have to be considered. Further evaluation via 3 month low-dose CT follow-up scan or PET CT should be considered. Pet imaging could not differentiate active inflammatory from neoplastic process. There is no acute infiltrate OTHER FINDINGS: Calcified subcarinal lymph nodes are noted. A small amount of coronary arterial calcification is noted. A small amount of pericardial effusion measuring up to 8 millimeters in thickness is seen over the anterior heart border. IMPRESSION: Lung rads category 4 A suspicious findings with 12 millimeter indeterminate pulmonary nodule right lower lobe requiring follow-up. Evidence of healed granulomatous disease. Dictated by: Edil Zurita 08/18/2019 09:34 Electronically signed by Edil Zurita in [place] 08/18/2019 09:34
== END ==
PROVIDERS: PCP Internal Medicine Adolescent Medicine; Visit Provider Internal Medicine Adolescent Medicine
DX: Z87.891 Personal history of nicotine dependence (principal); Z12.2 Encounter for screening for malignant neoplasm of respiratory organs

== ENCOUNTER 2023-02-05 19:06 | Emergency (ER) | payer OTHER, SELFPAY ==
[2023-02-05 19:07] VITALS: BP 120/74; PULSE 81; RESP 18; TEMP 36.6; O2SAT 98; BMI 36.9
--- NOTE | 2023-02-05 20:10 | XR_ITS ---
PROCEDURE INFORMATION: Exam: XR Right Shoulder Exam date and time: 02/05/2023 8:12 PM Age: 62 years old Clinical indication: Pain; Shoulder; Right; Additional info: Fall TECHNIQUE: Imaging protocol: Radiologic exam of the right shoulder. Views: 2 or more views. COMPARISON: CT LUNG SCREENING 08/18/2019 8:25 AM FINDINGS: Bones/joints: No acute fracture or dislocation. Minimal acromioclavicular joint osteoarthrosis. Mild cystic change and sclerosis at the greater tuberosity suggesting rotator cuff tendinosis. Soft tissues: Unremarkable. IMPRESSION: No acute osseous abnormality. Ancillary findings as above.
--- NOTE | 2023-02-05 21:12 | HMH.EDGENADL ---
Discharge Plan Disposition Patient Disposition: Home, Self-Care Prescriptions Prescriptions: New prednisone 20 mg tablet 40 mg PO BID 5 Days Qty: 20 0RF No Action ibuprofen [Advil] 200 mg tablet 200 mg PO Q6H Hold Instructions: Resume on 05/29/19. With hold while on Xarelto ascorbic acid (vitamin C) 1,000 MG tablet,chewable 1,000 mg PO DAILY multivitamin 1 EACH capsule 1 each PO DAILY psyllium husk (aspartame) 3.4 GM powder in packet 3.4 gm PO DAILY Referrals Follow up/Referrals: Darrell Davies MD [Primary Care Provider] - See instructions Agus Dozier, PT [Physical Therapist] - See instructions (right shoulder pain with ROM) Robert Anderson DO [Staff Physician] - See instructions Activity Restrictions/Add. Instructions Additional Instructions/Restrictions: Call your family doctor to establish care for this visit to the emergency department and schedule follow-up within 48 hours to ensure improvement. If you have any worsening of your condition or any other concerning signs or symptoms, return to the emergency department or your primary care doctor for further evaluation. Physical therapy and orthopedic referrals have been placed, information is here. Clinical Impressions Clinical Impression: Right rotator cuff tendinitis Discharge ED Provider: [facility] HPI General Chief complaint: Extremity Injury, Upper Stated complaint: 02/04@1900 fell injured R shouder Time Seen by Provider: 02/05/23 20:00 Mode of Arrival: Ambulatory Source of Information: Patient Limitations: No Limitations Description of Symptoms (Recalled from ER Triage Doc. by RN): Pt states he took a fall yesterday around 1930 in his barn landing on his right shoulder. He states he can not raise his right shoulder and pain radiating into arm. History of Present Illness HPI narrative: 62-year-old male with history of remote right upper extremity trauma presenting with right upper extremity pain. Patient states that he fell on his right upper extremity (not outstretched) 1 day prior to arrival. Has been unable to move it since without significant pain. Pain is anterior, not present at rest, made worse with movement. Does not radiate. Denies neurovascular deficits. He does state that he thinks his right upper extremity is more swollen Related Data Home Medications Medication Instructions Recorded Confirmed ibuprofen 200 mg tablet (Advil) 200 mg PO Q6H Pain 01/01/19 05/23/19 ascorbic acid (vitamin C) 1,000 mg 1,000 mg PO DAILY Supplement 05/12/19 05/23/19 chewable tablet multivitamin 1 each PO DAILY Supplement 05/12/19 05/23/19 psyllium husk (aspartame) 3.4 gram 3.4 gm PO DAILY Supplement 05/12/19 05/23/19 oral powder packet Previous Rx's Medication Instructions Recorded prednisone 20 mg tablet 40 mg PO BID 5 days #20 tabs 02/05/23 Allergies Allergy/AdvReac Type Severity Reaction Status Date / Time No Known Allergies Allergy Verified 08/19/19 09:55 [facility] Disclaimer: The information contained in this section may have been updated after the patient was seen, as this information can be updated by other users. Social History Smoking Status: Current every day smoker tobacco type: cigarettes packs per day: 1 second hand exposure: No alcohol intake: current substance use type: denies use current occupational status: employed Travel in the last 8 weeks: None household members: family housing: house current occupation: developer current occupational exposures/hazards: No caffeine: Yes ROS Obtained: Yes All systems reviewed & no additional complaints except as documented Physical Exam General General appearance: alert, in no apparent distress and other ( ) Head Head exam: atraumatic and normocephalic Eye Eye exam: Present normal appearance, PERRL and EOMI ENT ENT exam: Present mucous membranes moist Neck Neck exam: Present normal in
[2023-02-05 21:52] VITALS: BP 124/75; PULSE 81; RESP 18; TEMP 36.6; O2SAT 98
== END 2023-02-05 23:20 | disposition home or self-care (01) ==
PROVIDERS: Emergency Provider Emergency Medicine; PCP Internal Medicine Adolescent Medicine
DX: S46.001A Unspecified injury of muscle(s) and tendon(s) of the rotator cuff of right shoulder, initial encounter (principal); W19.XXXA Unspecified fall, initial encounter; F17.210 Nicotine dependence, cigarettes, uncomplicated; R22.31 Localized swelling, mass and lump, right upper limb
CPT/HCPCS: 73030; 96372; 99284

== ENCOUNTER → 2023-03-13 07:01 | Outpatient (CLI) | payer OTHER, SELFPAY ==
--- NOTE | 2023-03-13 07:18 | XR_ITS ---
FINAL REPORT CLINICAL HISTORY: Pre Op- surgery next week on right shoulder smoker FINDINGS: Two views of the chest were obtained. The heart size and pulmonary vascularity are within normal limits. The mediastinum is normal. No acute pulmonary abnormality is identified. There is no pneumothorax. The bony thorax is intact. IMPRESSION: No active cardiopulmonary disease. Reviewed, Interpreted and Dictated by Fred Vásquez III, MD Transcribed by Janis Johnston Authenticated and [facility]
[2023-03-13 07:58] LABS: Basophils % 0.7 % (0.1-2.0); Eosinophils # 0.3 K/mm3 (0.0-0.4); Hemoglobin 14.5 g/dL (14.1-18.0); Lymphocytes # 2.1 K/mm3 (0.7-4.5); Lymphocytes % 40.1 % (10-50); Mean Corpuscular HGB Conc 34.6 g/dL (31.8-35.4); Mean Corpuscular Hemoglobin 31.4 pg (27.0-31.2); Mean Corpuscular Volume 90.7 fl (80-94); Mean Platelet Volume 7.5 fl (7.4-10.4); Monocytes # 0.4 K/mm3 (0.1-1.0); Monocytes % 7.4 % (1.7-9.3); Neutrophils # 2.5 K/mm3 (1.8-7.8); Neutrophils % 46.9 % (37.0-80.0); Platelet Count 306 K/mm3 (142-424); Red Blood Count 4.63 M/mm3 (4.60-6.20); Red Cell Distribution Width 14.6 % (11.5-17.5); White Blood Count 5.2 K/mm3 (4.8-10.8)
[2023-03-13 08:25] LABS: Chloride 108 mmol/L (98-107); Potassium 4.4 mmoL/L (3.5-5.1); Sodium 139 mmol/L (136-145)
[2023-03-13 08:28] LABS: Alanine Aminotransferase 27 U/L (12-78); Albumin Level 4.2 g/dl (3.5-5.0); Albumin/Globulin Ratio 1.6 (1.1-1.8); Alkaline Phosphatase 64 U/L (38-126); Anion Gap 9.4 mEq/L (5-15); Aspartate Amino Transferase 33 U/L (17-59); Bilirubin,Total 0.4 mg/dl (0.2-1.3); Blood Urea Nitrogen 13 mg/dl (9-20); Calcium 8.7 mg/dl (8.4-10.2); Carbon Dioxide 26 mmol/L (22.0-30.0); Estimated Glomerular Filt Rate 98 ml/min (>60); GFR (African American) 119 ML/MIN (>60); Globulin 2.7 g/dL (1.3-3.2); Glucose 119 mg/dl (74-100); Total Protein,Serum 6.9 g/dl (6.3-8.2)
== END ==
PROVIDERS: PCP Internal Medicine Adolescent Medicine; Visit Provider Orthopaedic Surgery
DX: Z01.818 Encounter for other preprocedural examination (principal); S46.011A Strain of muscle(s) and tendon(s) of the rotator cuff of right shoulder, initial encounter; Y99.9 Unspecified external cause status
CPT/HCPCS: 36415; 71046; 80053; 85025; 93005

== ENCOUNTER 2023-03-21 06:37 | Day surgery (SDC) | payer OTHER, SELFPAY ==
[2023-03-19 13:23] VITALS: BMI 38.0
[2023-03-21] VITALS (13 sets, daily range): BP systolic 125–147; BP diastolic 68–91; PULSE 16–74; RESP 14–18; TEMP 36.1–43; O2SAT 90–96
--- NOTE | 2023-03-21 07:27 | EXP.ANES.CKL ---
[facility] Disclaimer: The information contained in this section may have been updated after the patient was seen, as this information can be updated by other users. Medical History Hyperlipidemia Surgical History History of hip replacement History of knee replacement Family History Other Family history of cancer Social History Smoking Status: Current every day smoker tobacco type: cigarettes packs per day: 1 second hand exposure: No alcohol intake: current substance use type: denies use current occupational status: employed Travel in the last 8 weeks: None household members: family housing: house current occupation: developer current occupational exposures/hazards: No caffeine: Yes [facility] Anesthesia Checklist Patient Identification Patient Identification: Arm Band Structural Data Admitted From: Home Planned Operative Procedure/s: Right Shoulder Arthroscopy, Rotator Cuff Repair, Subacromial Decompression Consent for Planned Operative Procedure(s) Verified: Yes Verified Documents: Surgical Consent and History and Physical NPO Status Verified Time NPO: 00:00 Additional verifications Anesthesia Reactions: No Hx Blood Transfusions: No Blood Transfusion Reaction: No Airway Assessment Mallampati Score:: Class II C-Spine Mobility Assessed: Yes TMJ Mobility Assessed: Yes Dentition: Good Dentition Neurological Assessment Level of Consciousness: Awake and Alert Anesthesia Plan Anesthesia Risk discussed: Yes Anesthesia Plan: Verified ASA Class: II Anesthesia Type: General w/block (Right Interscalene Nerve Block. Risks/benefits explained. Pt verbalized understanding)
--- NOTE | 2023-03-21 11:19 | P.PNANES_ITS ---
[facility] Anesthesia Record Part I Anesthesia Record I Intake, IV Amount: 1,800 Hydration: Adequate Estimated blood loss (mL): 20 Urine output (mL): 0 Blood Products used (#): none Blood Pressure: 125/68 SaO2: 91 Pulse Rate: 64 Airway Patency: Patent Respiratory Rate: 14 Temperature: 98.6 F Patient is:: Drowsy and Stable Stable to PACU at:: 11:10
--- NOTE | 2023-03-21 11:28 | EXP.OP.NOTE ---
Date of procedure: 03/21/23 Pre-op Diagnosis:: Right shoulder rotator cuff tear Right shoulder impingement Right shoulder subacromial bursitis Right shoulder labral tear Post-op Diagnosis:: Same with massive rotator cuff tear and full-thickness chronic biceps tendon tear Procedure performed:: 1. Right shoulder arthroscopy with rotator cuff repair 2. Right shoulder arthroscopy with subacromial decompression 3. Right shoulder arthroscopy with extensive debridement of biceps stump and degenerative labral tearing Surgeon:: Robert Anderson DO STAFF DEVELOPMENT COORDINATOR RN:: Other Anesthesia: GETA and regional Estimated blood loss (mL): 5 Operative findings:: Massive rotator cuff tear retracted Operative note:: Patient was identified preoperatively. Right shoulder was marked with a yes and my initials. Underwent a block with anesthesia. Then taken to the operating room. Placed upon the operating bed. General anesthesia was administered airway secured. Then placed in a lateral position with all bony prominences well-padded within the beanbag. Right shoulder was placed in inline traction of the shoulder vyas. Right shoulder prepped and draped in normal sterile fashion. Once prepped and draped final operative timeout performed to identify proper patient procedure and extremity. Everyone involved the case agreed. There is no counter indications to beginning. Did receive preoperative antibiotics. Marking pen was used to raúl bony landmarks of the shoulder and standard portal sites. Skin knife was used incise posterior viewing portal. Blunt with trocar was placed in the glenohumeral joint. This was exchanged with a camera. Attention was brought anteriorly just above the subscapularis tendon. Where the anterior working portal was made. This was exchanged with a purple cannula. Then placed a probe in the shoulder joint. Upon probing there was some degenerative tearing at the superior aspect of the labrum there was no complete detachment of the labral tissue anteriorly. There was a chronic tear of the biceps proximally humerus cartilage remained intact. Glenoid cartilage had some softening but made remained intact. Sucker shaver was used to debride the degenerative tearing of the labrum and the base of the biceps. Attention was then brought the subacromial space there is a full-thickness rotator cuff tear so direct communication of the subacromial space with the glenohumeral space with a large tear. Lateral portal was made under direct visualization and changed for a passport cannula. The full-thickness rotator cuff tear involving supraspinatus infraspinatus was retracted medial past the level of the glenoid. Meticulous soft tissue mobilization was performed. This allowed me to grasp the cuff with a cuff grasper and reduce the rotator cuff tear back to footprint area. There is a very large retracted tear. A stay stitch was placed with the scorpion with the FiberWire for retraction of the rotator cuff tendon. Additional soft tissue mobilization was performed to allow the rotator cuff to extrude back to the footprint. [place] was placed after fiber tape was placed in the anterior aspect of the tear on the for a medial row anchor additional anchor was placed posteriorly to this this gave a good repair back to the edge of the footprint. The repair was under some tension but not a great amount of tension upon repair. Subacromial decompression was completed with planing of the undersurface the acromion and planing the undersurface of the distal clavicle spur. This was performed with a 5.5 mm barrel bur. Pictures were taken of the repair both in the posterior viewing and lateral portal. Joint was then drained. Skin was closed with nylon stitch sterile dressing placed. Patient waken anesthesia taken recovery in stable condition Condition: stable Disposition: PACU Complications:: None apparent
--- NOTE | 2023-03-21 12:17 | EXP.ANES.II ---
[facility] Anesthesia Record Part II Anesthesia Record Part II Discharge Time: 11:30 Destination: Surgical Day Care (OP Surgery) PACU nurse assessment reviewed?: Yes Patient Condition:: Good Anesthesia Complications:: None Swallowing reflex intact?: Yes Airway Patency: Patent Cyanosis?: No Blood Pressure: 145/73 SaO2: 92 Respiratory Rate: 16 Pulse Rate: 68 Temperature: 98.1 F Mental Status: Alert & Oriented Pain level:: 0 Nausea and/or vomitting:: None Intake, IV Amount: 0 Hydration: Adequate
== END 2023-03-21 12:40 | disposition home or self-care (01) ==
PROVIDERS: PCP Internal Medicine Adolescent Medicine; Visit Provider Orthopaedic Surgery
PROC: (CPT 29805; principal; 2023-03-21 08:00)
DX: M75.121 Complete rotator cuff tear or rupture of right shoulder, not specified as traumatic (principal); F17.210 Nicotine dependence, cigarettes, uncomplicated; W01.0XXA Fall on same level from slipping, tripping and stumbling without subsequent striking against object, initial encounter; Y92.9 Unspecified place or not applicable
CPT/HCPCS: 29827; 29828; 29826; 96374; C1713; J2405

== ENCOUNTER 2023-08-01 08:00 | Outpatient (RCR) | payer OTHER, SELFPAY ==
--- NOTE | 2023-05-07 15:19 | HMH.OTOPEV ---
OT Inpatient Evaluation Rehab OT Outpatient Eval Start: 05/07/23 15:05 Freq: Status: Active Protocol: Document 05/07/23 15:05 RMKATHARINE (Rec: 05/07/23 15:18 [facility] [id number]) E-signed By Cara Ovalles, OT Outpatient Therapy Subjective History Subjective History Pt is a 62 year old male who reports to therapy for initial evaluation to right shoulder. Pt injured right shoulder in January 2023 during a fall. Pt required surgery on March 21. Pt's surgery consisted of the following procedures: 1. Right shoulder arthroscopy with rotator cuff repair 2. Right shoulder arthroscopy with subacromial decompression 3. Right shoulder arthroscopy with extensive debridement of biceps stump and degenerative labral tearing. 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 Pt is normally completely independent with all ADLs and IADLs. Pt is right hand dominant. Pt is currently 7 weeks out from surgery and it is requested by surgeon to follow a slow protocol for massive rotator cuff repair. Pt was released from sling last week. Pt will continue to be seen twice a week in order to address right shoulder deficits. New diagnosis of cancer in past 12 No months? Chief Complaint Pain,Stiff,Weakness Symptom Type Ache,Throb,Sharp,Dull Symptoms Relieved By Rest/Positioning Symptoms Aggravated By Physical Activity,Lifting Prior Functional Limitations None Current Functional Limitations Reaching,Lifting,Housework, Dressing,Desk Work/Reading, Driving,Sleeping,Recreation Activity Symptom Description Intermittent,Activity Dependent Level of pain today (0-10) 3 Pain scale - at its best (0-10) 3 Pain scale - at its worst (0-10) 10 Shoulder/Elbow Eval Shoulder Objective Measurements Shoulder ROM Right Shoulder Abduction Passive Range of 75 degrees Motion (degrees) Shoulder Flexion Passive Range of Motion 90 degrees (degrees) Shoulder External Rotation Passive Range 30 degrees of Motion (degrees) Shoulder Internal Rotation Passive Range 30 degrees of Motion (degrees) Shoulder MMT Shoulder Abduction Strength Grade 3- Fair- Shoulder Flexion Strength Grade 3- Fair- Shoulder External Rotation Strength 3- Fair- Grade Shoulder Internal Rotation Strength 3- Fair- Grade Shoulder Strength Patient Testing Sitting Position Elbow Objective Measurements QuickDASH Activities Please rate your ability to do the following activities in the last week by selecting the number below the appropriate response. 1. Open a tight or new jar. No difficulty 2. Do heavy director of in service education (e.g., wash Severe difficulty saez, floors). 3. Carry a shopping bag or briefcase. Moderate difficulty 4. Wash your back. Unable 5. Use a knife to cut food. Mild difficulty 6. Recreational activities in which you Unable take some force or impact through your arm, shoulder, or hand (e.g., golf, hammering, tennis, etc.). 7. During the past week, to what extent Quite a bit has your arm, shoulder or hand problem interfered with your normal social activities with family, friends, neighbors or groups? 8. During the past week, were you Unable limited in your work or other regular daily activites as a result of your arm, shoulder or hand problem? 9. Arm, shoulder or hand pain. Severe 10. Tingling (pins and needles) in your Severe arm, shoulder or hand. 11. During the past week, how much So much difficulty that I can' difficulty have you had sleeping because t sleep of the pain in your arm, shoulder or hand? Quick DASH 42 Work Module (optional) The following questions ask about the impact of your arm, shoulder or hand problem on your ability to work (including homemaking if that is your main work role). 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 Yes 1. Using your usual technique for your Unable work? 2. Doing your usual work because of arm, Unable shoulder or hand pain? 3. Doing your work as well as you would Unable like? 4. Spending your usual amount of time Unable doing your work? Quick Dash Work Module Score 20 Sports/Performing Arts Module (optional) The following questions relate to the impact of your arm, shoulder or hand problem on playing your musical instrument or sport or both. If you play more than one sport or instrument (or play both), please answer with respect to the activity which is most important to you. Please indicate the sport or instrument Golf which is most important to you: Do you play a sport or instrument? Yes 1. Using your usual technique for Unable playing your instrument or sport? 2. Playing your musical instrument or Unable sport because of arm, shoulder or hand pain? 3. Playing your musical instrument or Unable sport as well as you would like? 4. Spending your usual amount of time Unable practicing or playing your instrument or sport? Quick Dash Sports/Performing Art Score 20 OT Outpatient Assessment Impairments Problems/Impairments Palpation Tenderness,Impaired Range of Motion,Impaired Strength,Impaired Endurance, Impaired Lifting,Impaired Dressing,Impaired Shower/ Bathing,Impaired Household Care,Impaired Recreational Activities,Impaired Work Activities,Impaired Desk/ Computer Activities,Increased Edema,Subjective C/O Pain Prognosis Rehab Potential Good Clinical Impression Consistent with Diagnosis Yes Short Term Goals Number of Weeks 4 Increase Range of Motion Yes: Flex: 90 Abd: 90 ER: 40 IR: 40 Increase Strength Yes: 3/5 throughout right shoulder Increase Endurance Yes: Pt will tolerate R shoulder exercises for ~20 min prior to rest. Decrease Subjective C/O Pain Yes: 6/10 at worst Patient to be Ind w/ HEP Yes: AAROM exercises; pendulums Improve Quick Dash Score Yes: Activities: 35 or below Half-Way Goals Number of Weeks 8 Increase Range of Motion Yes: Flex: 120 Abd: 120 ER: 60 IR: 50 Increase Strength Yes: 3+,4-/5 throughout right shoulder Increase Endurance Yes: Pt will tolerate R shoulder exercises for ~30 minutes prior to rest. Decrease Subjective C/O Pain Yes: 3/10 at worst Patient to be Ind w/ Advanced HEP Yes: Advanced strengthening Improve Quick Dash Score Yes: Activities: 25 or below Outpatient Therapy Plan of Care Treatment Plan May Include Therapeutic Exercise Including Home Yes Exercise Program Manual Therapy Techniques Yes Neuromuscular Re-education Yes ADL/Self Care Education Yes Dry Needling Yes Thermal Modalities Yes Electrical Stimulation Yes Ultrasound/Phonophoresis Yes Iontophoresis Yes Parrafin Yes Orthotics/Bracing/Splinting Yes Massage Yes Eval/Re-Eval Yes Frequency Times per week 2 Duration Number of Weeks 8 Addendums This patient is a candidate for social No or vocational rehab? Patient/Guardian verbally acknowledges Yes understanding of treatment program and consents to further treatment? Patient/Guardian verbally acknowledges Yes understanding of diagnosis, prognosis and goals for treatment? Eval Complexity OT Charge 80443 - Moderate Complexity PHYSICIAN CERTIFICATION: I certify the specified therapy services for Isaiah Garza are required, authorized, and reviewed every 30 days.
--- NOTE | 2023-06-05 09:34 | HMH.RHREAS ---
Rehab Reassessment Rehab OP Re-assessment Start: 05/07/23 15:02 Freq: Status: Active Protocol: Document 06/05/23 08:18 OCTAVIO (Rec: 06/05/23 09:34 OCTAVIO [id number]) E-signed By Cara Ovalles OT QuickDASH Activities Please rate your ability to do the following activities in the last week by selecting the number below the appropriate response. 1. Open a tight or new jar. Moderate difficulty 2. Do heavy dressing room porter (e.g., wash Mild difficulty saez, floors). 3. Carry a shopping bag or briefcase. No difficulty 4. Wash your back. Unable 5. Use a knife to cut food. No difficulty 6. Recreational activities in which you Unable take some force or impact through your arm, shoulder, or hand (e.g., golf, hammering, tennis, etc.). 7. During the past week, to what extent Extremely has your arm, shoulder or hand problem interfered with your normal social activities with family, friends, neighbors or groups? 8. During the past week, were you Very limited limited in your work or other regular daily activites as a result of your arm, shoulder or hand problem? 9. Arm, shoulder or hand pain. Moderate 10. Tingling (pins and needles) in your None arm, shoulder or hand. 11. During the past week, how much Severe difficulty difficulty have you had sleeping because of the pain in your arm, shoulder or hand? Quick DASH 34 Rehab Re-assessment Subjective Subjective It's just a constant dull ache. Objective Objective Notes Pt continues to be seen twice a week in order to address right shoulder deficits. Each session, pt is currently 11 weeks post op to right shoulder for the following procedures: 1. Right shoulder arthroscopy with rotator cuff repair 2. Right shoulder arthroscopy with subacromial decompression 3. Right shoulder arthroscopy with extensive debridement of biceps stump and degenerative labral tearing. Each session, pt engages in AROM and AAROM exercises. Pt' s progression in therapy has been slow per surgeon protocol . He also receives PROM manual stretching in all planes: flexion, abduction, ER , and IR. Modalities are provided in order to decrease pain/inflammation. Assessment Progress Assessment Slower Than Expected Assessment Notes Pt is very consistent about attending therapy sessions. Pt continues to remain significantly limited with AROM at this time. He also complains of a constant dull ache at the shoulder. His worst pain is a 5/10. He does return to the surgeon on 06/15 for re-evaluation. Current AROM R shoulder Flex: 60 degrees Abd: 60 degrees ER: 25 degrees IR: [address], 4, and 5 Goals Not Met See below Revised Goals ST, 2, and 6 LT-6 Plan Plan Continue with OT plan of care at this time. Frequency of Therapy 2x's a week Duration of therapy 6 more weeks Time and Billing Re-Eval Time 12 Re-Eval Billing Units 1 PHYSICIAN CERTIFICATION: I certify the specified therapy services for Isaiah Garza are required, authorized, and reviewed every 30 days.
--- NOTE | 2023-07-02 09:57 | HMH.RHREAS ---
Rehab Reassessment Rehab OP Re-assessment Start: 05/07/23 15:02 Freq: Status: Active Protocol: Document 07/02/23 09:48 OCTAVIO (Rec: 07/02/23 09:57 OCTAVIO [id number]) E-signed By Cara Ovalles OT Rehab Re-assessment Subjective Subjective I try but it just won't actively move up. Objective Objective Notes Pt continues to be seen twice a week in order to address right shoulder deficits. Each session, pt is currently 15 weeks post op to right shoulder for the following procedures: 1. Right shoulder arthroscopy with rotator cuff repair 2. Right shoulder arthroscopy with subacromial decompression 3. Right shoulder arthroscopy with extensive debridement of biceps stump and degenerative labral tearing. Each session, pt engages in AROM, AAROM, and strengthening exercises. Pt's progression in therapy has been slow per surgeon protocol. He also receives PROM manual stretching in all planes: flexion, abduction, ER, and IR . Modalities are provided in order to decrease pain/ inflammation. Assessment Progress Assessment Slower Than Expected Assessment Notes Pt consistent about attending therapy sessions. Pt continues to remain significantly limited with AROM at this time. He also complains of a constant dull ache at the shoulder; 09/27. He returns to surgeon at the end of June Current AROM R shoulder Flex: 65 degrees Abd: 70 degrees ER: 28 degrees IR: 50 degrees Patient goals [address], 4, and 5 Goals Not Met See below Revised Goals ST, 2, and 6 LT-6 Plan Plan Continue with OT plan of care at this time. Therapist is concerned with his continued limitations in AROM. Therapist recommends patient increase sessions to 3x's a week to continue addressing all deficits. Frequency of Therapy 2-3x's per week Duration of therapy 6 more weeks Time and Billing Re-Eval Time 11 Re-Eval Billing Units 1 PHYSICIAN CERTIFICATION: I certify the specified therapy services for Isaiah Garza are required, authorized, and reviewed every 30 days.
== END 2023-08-01 09:30 | disposition home or self-care (01) ==
LOC: OT 08:00
PROVIDERS: PCP Internal Medicine Adolescent Medicine; Visit Provider Orthopaedic Surgery
DX: M75.121 Complete rotator cuff tear or rupture of right shoulder, not specified as traumatic (principal); M25.511 Pain in right shoulder; Z98.890 Other specified postprocedural states
CPT/HCPCS: 97010; 97014; 97110; 97140; 97164; 97166; 97530; G0283

== ENCOUNTER 2025-03-09 13:00 | Outpatient (CLI) | payer OTHER, SELFPAY ==
--- NOTE | 2025-03-09 13:10 | XR_ITS ---
FINAL REPORT CLINICAL HISTORY: right shoulder pain COMPARISON: 02/06/2023 FINDINGS: RIGHT SHOULDER 2 views demonstrate no acute fracture or dislocation. There are mild degenerative changes. The visualized joint spaces are normally aligned. The soft tissues are unremarkable. IMPRESSION: No acute process. Reviewed, Interpreted and Dictated by Rolando Santos MD Transcribed by Kiana Moeller Authenticated and [facility]
--- NOTE | 2025-03-09 13:10 | XR_ITS ---
FINAL REPORT CLINICAL HISTORY: left knee pain FINDINGS: LEFT KNEE 3 views of the left knee were obtained. There is no acute fracture or dislocation. There are mild tricompartmental degenerative changes. Visualized joint spaces are normally aligned. Soft tissues are unremarkable. IMPRESSION: No acute bony abnormality. Reviewed, Interpreted and Dictated by Rolando Santos MD Transcribed by Kiana Moeller Authenticated and [facility]
--- NOTE | 2025-03-09 13:34 | XR_ITS ---
FINAL REPORT CLINICAL HISTORY: left shoulder pain FINDINGS: LEFT SHOULDER 2 views of the left shoulder were obtained. There is no acute fracture or dislocation. Mild degenerative changes are noted. Visualized joint spaces are normally aligned. Soft tissues are unremarkable. IMPRESSION: No acute bony abnormality. Reviewed, Interpreted and Dictated by Rolando Santos MD Transcribed by Kiana Moeller Authenticated and [facility]
== END 2025-03-09 23:59 | disposition home or self-care (01) ==
LOC: RAD 13:03
PROVIDERS: PCP Internal Medicine Adolescent Medicine; Visit Provider Orthopaedic Surgery
DX: M25.511 Pain in right shoulder (principal); M25.562 Pain in left knee; M25.512 Pain in left shoulder
CPT/HCPCS: 73030; 73562